=== PATIENT | male | born 1955 | race Caucasian/White ===

== ENCOUNTER → 2017-10-17 16:21 | Outpatient (CLI) | payer OTHER, SELFPAY ==
[2017-10-17 17:55] LABS: Absolute Lymphocyte Count 1.19 X10^3/ul (0.83-4.51); Absolute Neutrophil Count 2.2 X10^3/uL (2.0-7.7); Basophil# 0.04 X10^3/uL; Eosinophil# 0.09 X10^3/uL; Eosinophils% 2.3 % (0-5); Hematocrit 43.8 % (40-54); Hemoglobin 14.2 g/dl (13.0-16.5); Lymphocyte # 1.19 X10^3/ul (4.0); Lymphocyte % 30.1 % (19-41); Mean Corp Hgb Conc 32.4 g/gl (32-36); Mean Corpuscular Hgb 32.6 pg (27.0-32.0); Mean Corpuscular Volume 100.5 fL (80-94); Mean Platelet Vol. 8.4 fl (6.2-12.0); Monocyte# 0.42 X10^3/uL; Monocyte% 10.6 % (0-10); Neutrophil # 2.21 X10^3/uL (2.7-7.7); Platelet Count 200 K/mm3 (150-450); RBC Distribution Width CV 13.2 % (11.6-14.6); RBC Distribution Width SD 48.2 fl (35.1-43.9); Red Blood Count 4.36 M/mm3 (4.6-6.2)
[2017-10-17 17:57] LABS: POSITIVE COUNT NO; POSITIVE DIFFERENTIAL NO; POSITIVE MORPHOLOGY NO
[2017-10-17 18:57] LABS: Anion Gap 8 (5-15); BUN 13 mg/dL (7-18); Calcium,Total 8.6 mg/dL (8.5-10.1); Chloride 106 mmol/L (98-107); Creatinine, Serum 0.81 mg/dL (0.70-1.30); EST Glomerular Filtration Rate 102 mL/min (>60); Est Glom Filt Rate - Afr Amer 123 mL/min (>60); Glucose 90 mg/dL (74-106); Potassium 3.9 mmol/L (3.5-5.1); Sodium Level 142 mmol/L (136-145)
[2017-10-18 20:08] LABS: Uric Acid 4.5 mg/dL (3.5-7.2)
== END ==
PROVIDERS: Family Provider Family Medicine; PCP Family Medicine; Visit Provider Podiatrist
DX: M10.9 Gout, unspecified (principal)
CPT/HCPCS: 36415; 80048; 84550; 85025

== ENCOUNTER → 2017-12-21 11:09 | Outpatient (CLI) | payer OTHER, SELFPAY ==
--- NOTE | 2017-12-21 11:14 | RAD_ITS ---
STUDY: X-RAY CHEST REASON FOR EXAM: Male, 62 years old. Acute bronchitis. Cough. TECHNIQUE: PA and lateral views of the chest. COMPARISON: None. FINDINGS: The lungs are clear and expanded. Scattered calcified granulomas. There is no demonstrated pleural abnormality. Normal size heart. Normal mediastinum and hong. Normal visualized pulmonary arteries. Normal visualized aortic arch and descending thoracic aorta. There are diffuse degenerative changes of the visualized thoracic spine. Mild dextroscoliosis. Normal visualized ribs, clavicles, and shoulders. There is no demonstrated abnormality of the visualized soft tissue structures of the upper abdomen. RAD/Chest PA and Lateral IMPRESSION: No acute abnormality is seen. Electronically Signed: Jp Keller MD at 11:33 EDT Tel [phone], Service support ,
== END ==
PROVIDERS: Family Provider Family Medicine; PCP Family Medicine; Visit Provider Family Medicine
DX: J20.9 Acute bronchitis, unspecified (principal)
CPT/HCPCS: 71046

== ENCOUNTER → 2018-01-01 09:00 | Outpatient (CLI) | payer OTHER, SELFPAY ==
[2018-01-01 12:54] LABS: PSA,Total - Annual Screen 2.49 ng/mL (0.00-4.00); Thyroid Stim Hormone (TSH) 5.81 uIU/mL (0.358-3.74)
== END ==
PROVIDERS: Family Provider Family Medicine; PCP Family Medicine; Visit Provider Family Medicine
DX: E89.0 Postprocedural hypothyroidism (principal); Z12.5 Encounter for screening for malignant neoplasm of prostate
CPT/HCPCS: 36415; 84153; 84443; G0103

== ENCOUNTER → 2018-07-22 09:40 | Outpatient (CLI) | payer OTHER, SELFPAY ==
[2018-07-22 12:32] LABS: Absolute Lymphocyte Count 0.88 X10^3/ul (0.83-4.51); Absolute Neutrophil Count 2.7 X10^3/uL (2.0-7.7); Basophil# 0.03 X10^3/uL; Basophil% 0.8 % (0-1); Eosinophil# 0.04 X10^3/uL; Hematocrit 44.4 % (40-54); Hemoglobin 14.2 g/dl (13.0-16.5); Lymphocyte # 0.88 X10^3/ul (4.0); Mean Corpuscular Hgb 31.8 pg (27.0-32.0); Mean Corpuscular Volume 99.6 fL (80-94); Mean Platelet Vol. 8.7 fl (6.2-12.0); Monocyte# 0.33 X10^3/uL; Monocyte% 8.3 % (0-10); Neutrophil # 2.72 X10^3/uL (2.7-7.7); Neutrophil % 67.9 % (47-70); Platelet Count 220 K/mm3 (150-450); RBC Distribution Width CV 13.4 % (11.6-14.6); RBC Distribution Width SD 48.7 fl (35.1-43.9); Red Blood Count 4.46 M/mm3 (4.6-6.2)
[2018-07-22 12:35] LABS: POSITIVE COUNT NO; POSITIVE DIFFERENTIAL NO; POSITIVE MORPHOLOGY NO
[2018-07-22 13:08] LABS: Anion Gap 11 (5-15); BUN 12 mg/dL (7-18); BUN/Creat Ratio 14.2 RATIO (10-20); Calcium,Total 8.9 mg/dL (8.5-10.1); Chloride 110 mmol/L (98-107); Creatinine, Serum 0.84 mg/dL (0.70-1.30); EST Glomerular Filtration Rate 97 mL/min (>60); Est Glom Filt Rate - Afr Amer 118 mL/min (>60); Glucose 84 mg/dL (74-106); Potassium 4.1 mmol/L (3.5-5.1); Sodium Level 146 mmol/L (136-145); Thyroid Stim Hormone (TSH) 1.14 uIU/mL (0.358-3.74)
--- OUTSIDE RECORDS SUMMARY | 2018-10-23 22:01 | XMS RPT_ITS ---
:1955 Author Organization [facility] Care Team Providers Name Role Phone Ian Rodríguez Attending Unavailable Ian Rodríguez Primary Care Unavailable Ayaan Velarde Attending Unavailable Ian Rodríguez Primary Care Unavailable Ian Rodríguez Attending Unavailable Ian Rodríguez Referring Unavailable Ian Rodríguez Primary Care Unavailable Ian Rodríguez Attending Unavailable Ian Rodríguez Primary Care Unavailable PROBLEMS PROBLEMS DATE TYPE CONDITION / CODE ATTENDING STATUS SOURCE 12/21/2017 Unknown J20.9 - Acute Ian Rodríguez Active [place] bronchitis, Community unspecified / Hospital J20.9(ICD-10) Repository PROCEDURES PROCEDURES No Procedure Records FoundRESULTS RESULTS CBC W/DIFF, AUTOMATED Collected: 07/22/2018 Status: F Source: RADHA 9:42 AM [facility] REPOSITORY Order Comment: Order Date: 01/25/18 Order Info: 0184-1 - CBCD TYPE CODE TESTS RESULT OUT OF RANGE REFERENCE UNITS LAB L100.1000 4.4-11.0 K/mm3 Low WBC 4.0 LAB L100.1200 4.6-6.2 M/mm3 Low RBC 4.46 LAB L100.1300 13.0-16.5 g/dl Normal HGB 14.2 LAB L100.1400 40-54 % Normal HCT 44.4 LAB L100.1500 80-94 fL High MCV 99.6 LAB L100.1600 27.0-32.0 pg Normal MCH 31.8 LAB L100.1700 32-36 g/gl Normal MCHC 32.0 LAB L100.1810 11.6-14.6 % Normal RDW CV 13.4 LAB L100.1820 35.1-43.9 fl High RDW SD 48.7 LAB L100.1900 150-450 K/mm3 Normal PLT 220 LAB L100.2000 6.2-12.0 fl Normal MPV 8.7 LAB L100.2100 47-70 % Normal NEUT% 67.9 LAB L100.2200 19-41 % Normal LY% 22.0 LAB L100.2300 0-10 % Normal MONO% 8.3 LAB L100.2400 0-5 % Normal EO% 1.0 LAB L100.2500 0-1 % Normal BASO% 0.8 LAB L100.2550 0.0-0.9 % Normal IM GRAN % 0.000 Result Comment: IG% - Immature Granulocytes (promyelocytes, myelocytes and metamyelocytes) > 1% indicates that a LEFT SHIFT is Present. LAB L100.2620 2.0-7.7 X10 3/uL Normal Absolute Neut 2.7 LAB L100.2720 0.83-4.51 X10 3/ul Normal Absolute Lymph 0.88 Performed By: #### L100.0100, L500.2500, L501.9520 #### [facility] [address] [place], [place], [id number] BASIC METABOLIC Collected: 07/22/2018 Status: F Source: RADHA [place] (ARLET) 9:42 AM [facility] REPOSITORY Order Comment: Order Date: 01/25/18 Order Info: 0667-1 - BMP Order Info: 3016-3 - TSH TYPE CODE TESTS RESULT OUT OF RANGE REFERENCE UNITS LAB L501.0100 74-106 mg/dL Normal GLU 84 Result Comment: Please note revised GLUCOSE reference range effective 2017. LAB L501.1000 7-18 mg/dL Normal BUN 12 LAB L501.1100 0.70-1.30 mg/dL Normal CREAT,SERUM 0.84 Result Comment: The validity of the calculated GFR AND GFRAA in patients over 70 years has not been determined. Clinical correlation is essential. LAB L501.1110 >60 mL/min Normal EST GFR 97 Result Comment: Non- GFR Calc LAB L501.1115 >60 mL/min Normal EST GFR - AA 118 Result Comment: GFR Calc LAB L501.1300 10-20 RATIO Normal BUN/CRE 14.2 LAB L501.2200 8.5-10.1 mg/dL CA Normal 8.9 LAB L501.5300 136-145 mmol/L High NA 146 LAB L501.5600 3.5-5.1 mmol/L K Normal 4.1 LAB L501.5900 98-107 mmol/L High CL 110 LAB L501.6100 21.0-32.0 mmol/L Normal CO2 25.0 LAB L501.6200 5-15 Normal GAP 11 Performed By: #### L100.0100, L500.2500, L501.9520 #### [facility] [address] [facility] [place], [place], [address] THYROID STIM HORMONE Collected: 07/22/2018 Status: F Source: RADHA (TSH) 9:42 AM [facility] REPOSITORY Order Comment: Order Date: 01/25/18 Order Info: 0667-1 - BMP Order Info: 3016-3 - TSH TYPE CODE TESTS RESULT OUT OF RANGE REFERENCE UNITS LAB L501.9520 0.358-3.74 uIU/mL Normal TSH 1.14 Performed By: #### L100.0100, L500.2500, L501.9520 #### [facility] [address] [place], [place], [address] THYROID STIM HORMONE Collected: 01/01/2018 Status: F Source: RADHA (TSH) 9:02 AM [facility] REPOSITORY Order Comment: Order Date: 07/20/17 Order Info: 3016-3 - TSH Order Info: 2857-1 - PSA TYPE CODE TESTS RESULT OUT OF RANGE REFERENCE UNITS LAB L501.9520 0.358-3.74 uIU/mL High TSH 5.81 Performed By: #### L501.9520, L501.9910 #### [facility] [address] [place], [address] PSA,TOTAL - ANNUAL Collected: 01/01/2018 Status: F Source: RADHA SCREEN 9:02 AM [facility] REPOSITORY Order Comment: Order Date: 07/20/17 Order Info: 3016-3 - TSH Order Info: 2857-1 - PSA TYPE CODE TESTS RESULT OUT OF RANGE REFERENCE UNITS LAB L501.9910 0.00-4.00 ng/mL Normal PSA,TOT 2.49 SCREEN Result Comment: This test was performed using the TPSA assay method for the [employer] chemistry system. Values obtained with different assay methods cannot be used interchangably. When changing PSA assays in the course of monitoring a patient, additional sequential testing should be carried out to confirm baseline values. Performed By: #### L501.9520, L501.9910 #### [facility] [address] [place], [address] CHEST PA AND LATERAL Observed: 12/21/2017 Status: F Source: RADHA 11:14 AM [facility] REPOSITORY [facility] [address] [place] [address] Chest PA and Lateral MR#: [id number] Acct: [id number] Name: TERESAWILLIS Rep #: [id number] : 1955 62 From: Jp Keller MD PCP: Ian Rodríguez MD Status: REG CLI Study: Chest PA and Lateral Date of Exam: 12/21/17 Exam# [id number] Ordering Dr: Ian Rodríguez MD STUDY: X-RAY CHEST REASON FOR EXAM: Male, 62 years old. Acute bronchitis. Cough. TECHNIQUE: PA and lateral views of the chest. COMPARISON: None. FINDINGS: The lungs are clear and expanded. Scattered calcified granulomas. There is no demonstrated pleural abnormality. Normal size heart. Normal mediastinum and hong. Normal visualized pulmonary arteries. Normal visualized aortic arch and descending thoracic aorta. There are diffuse degenerative changes of the visualized thoracic spine. Mild dextroscoliosis. Normal visualized ribs, clavicles, and shoulders. There is no demonstrated abnormality of the visualized soft tissue structures of the upper abdomen. RAD/Chest PA and Lateral IMPRESSION: No acute abnormality is seen. Electronically Signed: Jp Keller MD at 11:33 EDT Tel [phone], Service support , CC: Ian Rodríguez MD [employer] Inspectors: Signed CBC W/DIFF, AUTOMATED Collected: 10/17/2017 Status: F Source: [place] 4:26 PM [facility] REPOSITORY TYPE CODE TESTS RESULT OUT OF RANGE REFERENCE UNITS LAB L100.1000 4.4-11.0 K/mm3 Low WBC 4.0 LAB L100.1200 4.6-6.2 M/mm3 Low RBC 4.36 LAB L100.1300 13.0-16.5 g/dl Normal HGB 14.2 LAB L100.1400 40-54 % Normal HCT 43.8 LAB L100.1500 80-94 fL High MCV 100.5 LAB L100.1600 27.0-32.0 pg High MCH 32.6 LAB L100.1700 32-36 g/gl Normal MCHC 32.4 LAB L100.1810 11.6-14.6 % Normal RDW CV 13.2 LAB L100.1820 35.1-43.9 fl High RDW SD 48.2 LAB L100.1900 150-450 K/mm3 Normal PLT 200 LAB L100.2000 6.2-12.0 fl Normal MPV 8.4 LAB L100.2100 47-70 % Normal NEUT% 56.0 LAB L100.2200 19-41 % Normal LY% 30.1 LAB L100.2300 0-10 % High MONO% 10.6 LAB L100.2400 0-5 % Normal EO% 2.3 LAB L100.2500 0-1 % Normal BASO% 1.0 LAB L100.2550 0.0-0.9 % Normal IM GRAN % 0.000 Result Comment: IG% - Immature Granulocytes (promyelocytes, myelocytes and metamyelocytes) > 1% indicates that a LEFT SHIFT is Present. LAB L100.2620 2.0-7.7 X10 3/uL Normal Absolute Neut 2.2 LAB L100.2720 0.83-4.51 X10 3/ul Normal Absolute Lymph 1.19 Performed By: #### L100.0100 #### [facility] [address] [facility] [place], [place], [id number] BASIC METABOLIC Collected: 10/17/2017 Status: F Source: [place] PROFILE (BMP) 4:26 PM [facility] REPOSITORY TYPE CODE TESTS RESULT OUT OF RANGE REFERENCE UNITS LAB L501.0100 74-106 mg/dL Normal GLU 90 Result Comment: Please note revised GLUCOSE reference range effective 2017. LAB L501.1000 7-18 mg/dL Normal BUN 13 LAB L501.1100 0.70-1.30 mg/dL Normal CREAT,SERUM 0.81 Result Comment: The validity of the calculated GFR AND GFRAA in patients over 70 years has not been determined. Clinical correlation is essential. LAB L501.1110 >60 mL/min Normal EST GFR 102 Result Comment: Non- GFR Calc LAB L501.1115 >60 mL/min Normal EST GFR - AA 123 Result Comment: GFR Calc LAB L501.1300 10-20 RATIO Normal BUN/CRE 16.0 LAB L501.2200 8.5-10.1 mg/dL CA Normal 8.6 LAB L501.5300 136-145 mmol/L NA Normal 142 LAB L501.5600 3.5-5.1 mmol/L K Normal 3.9 LAB L501.5900 98-107 mmol/L CL Normal 106 LAB L501.6100 21.0-32.0 mmol/L Normal CO2 28.0 LAB L501.6200 5-15 Normal GAP 8 Performed By: #### L500.2500, L501.1400 #### [facility] [address] [place], [address] URIC ACID Collected: 10/17/2017 Status: F Source: [place] 4:26 PM [facility] REPOSITORY TYPE CODE TESTS RESULT OUT OF RANGE REFERENCE UNITS LAB L501.1400 3.5-7.2 mg/dL Normal URIC 4.5 Result Comment: The drugs N-Acetylcysteine and Metamizole may falsely depress this assay. Performed By: #### L500.2500, L501.1400 #### [facility] [address] [place], [address] ALLERGIES ALLERGIES No Allergies Records FoundENCOUNTERS ENCOUNTERS ADMIT/DISCHARGE ACCOUNT ADMITTING ENCOUNTER LOCATION SOURCE NUMBER CLASS 07/22/2018 [id number] [facility] ing:MFPLAB Repository 01/01/2018 [id number] [facility] ing:MFPLAB Repository 12/21/2017 [id number] [facility] ing:MTRAD Repository 10/17/[id number] ing:MTLAB Repository PAYERS PAYERS ENCOUNTER GUARANTOR PAYER SUBSCRIBER SOURCE 07/22/2018 Kristin Aranda Primary Kristin Bess [id number] Insurance:MEDICAL HellerDOB: [facility] [id number] Number: Repository [id number]: [phone] [id number] [phone] () Date:1164-62-31PM [address] [address]NN: 07/22/2018 Secondary NOT GIVENUNK [place] Insurance:SELF PAY [facility] Number: Effective Repository Date:2018-07-22 01/01/2018 Kristin Aranda Primary Kristin Bess [id number] Insurance:MEDICAL HellerDOB: [facility] [id number] Number: Repository [id number]: [phone] [id number] [phone] () Date:[id number] [address]IV: 01/01/2018 Secondary NOT GIVENUNK [place] Insurance:SELF PAY [facility] Number: Effective Repository Date:2018-01-01 12/21/2017 [facility] Primary Kristin Aranda Radha [id number] Insurance:MEDICAL HellerDOB: [facility] [id number] Number: Repository [id number]: 330 [id number] [phone] () Date:0163-66-82QT [address] [address]QJ: 12/21/2017 Secondary NOT GIVENUNK [place] Insurance:SELF PAY [facility] Number: Effective Repository Date:2017-12-21 10/17/2017 [facility] Primary Kristin Aranda Radha [id number] Insurance:MEDICAL HellerDOB: [facility] [id number] Number: Repository [id number]: [phone] [id number] [phone] () Date:4825-03-01QD [address] [place] [address]JL: 10/17/2017 Secondary NOT GIVENUNK [place] Insurance:SELF PAY [facility] Number: Effective Repository Date:2017-10-17
== END ==
PROVIDERS: Family Provider Family Medicine; PCP Family Medicine; Visit Provider Family Medicine
DX: E89.0 Postprocedural hypothyroidism (principal); R53.81 Other malaise
CPT/HCPCS: 36415; 80048; 84443; 85025

== ENCOUNTER 2018-11-13 08:00 | Outpatient (RCR) | payer OTHER, SELFPAY ==
--- NOTE | 2018-11-05 07:47 | HP.PTEVAL ---
Patient's Visit Information KRISTIN MOORE is a 63 year old M referred to Physical Therapy by Demetri Bro MD with a diagnosis of Left Knee OA. Date of Evaluation: 11/05/18 Physical Therapist: Hazel Adams DPT - Visit Plan Frequency: 1x/Week Duration: 4 Weeks Plan: Single visit for gym HEP prior to TKR - Subjective Findings: Dr. Bro wants him to do PT before his LEFT knee replacement at the end of January. Bone and bone in the knee. Fully functional just painful- cant squat. Work: [employer]- 35 hours a week. Wears [employer] shoes and wears a brace occasioanlly. Most of the pain is along the lateral aspect and knee cap. Worst: 8/10 Agg: everything Eases: Ibuprofen Best:2/10 Achy pains in the knee. Sleep: not disturbed but doesn't sleep well anyways. X-rays recently. Does not have good balance- has been going on for awhile due to fracture in his foot in [id number]- still has pain in the foot. Is not currently working out- tired after work. But does have a family membership. PMHx: thyroid, Meds: levothyroxin, Citalopram - Objective Posture: FH, RS, Increased kyphosis. Observation: sitting with left leg stretched straight out in front of him. Gait: slightly antalgic- decreased stance on the left LE- poor heel/toe pattern. SLS: unable to remove hands from wall but does WS fully. HR/TR: able with UE A. Palpation: tender along lateral joint line and superior patella. ROM: 0-110 degrees with pain at end ranges of both flexion and extn. Strength: Ankle: 4+/5, Knee: Extn: 4+/5 Flexion: 4-/5 Hip: 4-/5 throughout pain with IR/ER testing Core: fair minus. Flex: HS: severe Gatroc: mod - Goals Goal 1:: Patient will be I with HEP and progression Goal Time Frame: 4-6 Weeks - Rehabilitation Potential Physical Therapy Diagnosis: Patient presents with hypomobility- he has decreased ROM, strength and muscular endurance leading to abnormal gait and increased pain with ADL's. Rehabilitation Potential: Fair - Anticipated Interventions Patient/Client Instruction: Educate patient on: Benefits of Fitness Program Therapeutic Exercise to Include: Strength training, Power training, Endurance training, Balance training, Agility training, Body mechanics, Postural training, Flexibilty training, Gait and locomotor training, Dynamic Lumbar Stabilization, Scapular Strength/Stabilization For the Purpose of:: To improve muscle performance and motor function Thank you for the opportunity to evaluate your patient. For Medicare and Medicare HMO plans, please review the plan of care and approve it. It will need to be FAXED BACK to us at [phone] for Medicare purposes. For Medicare only, by signing this I certify the plan of care. Please let me know if there are questions or concerns regarding this plan of care. Physician Signature: Date:
--- NOTE | 2018-11-13 08:59 | HP.PTDCSUM_ITS ---
HP - PT D/C Summary It has been my pleasure to treat KRISTIN MOORE under orders from Demetri Bro MD, for the diagnosis of Left Knee OA for a total of 2 visit(s). Discharge Date: Please see the following information for a summary of their discharge status. - Subjective Subjective: Patient reports that he is ready for the knee replacement - Overall Improvement % Improvement: 50 - Objective Objective/Function: Patient was able to complete without incidence. 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 - Goals Goal 1:: Patient will be I with HEP and progression - Plan Plan: Discharge to I HEP - D/C Information If there are questions or concerns regarding this patient's physical therapy, please feel free to call me at [phone]. Thank you for the referral of this patient. Sincerely, HEIDI ColmenaresT
== END 2018-11-13 10:12 | disposition home or self-care (01) ==
LOC: PT 08:00
PROVIDERS: Family Provider Family Medicine; PCP Family Medicine; Referring Provider Specialist; Visit Provider Specialist
DX: M17.12 Unilateral primary osteoarthritis, left knee (principal)
CPT/HCPCS: 97110; 97161

== ENCOUNTER 2019-03-01 21:41 | Inpatient (IN) | payer OTHER, SELFPAY ==
[2019-03-01 21:43] VITALS: BP 117/61; PULSE 87; RESP 15; TEMP 36.6; O2SAT 89; BMI 31.8
--- NOTE | 2019-03-01 21:57 | EKG12_ITS ---
Test Reason : CP Blood Pressure : / mmHG Vent. Rate : 075 BPM Atrial Rate : 075 BPM P-R Int : 168 ms QRS Dur : 098 ms QT Int : 396 ms P-R-T Axes : 027 -44 024 degrees QTc Int : 442 ms Normal sinus rhythm Left axis deviation Minimal voltage criteria for LVH, may be normal variant Abnormal ECG Confirmed by MARIBEL CERVANTES, WAGNER ([id number]), editorial specialist BENEDICTO ROJAS ([id number]) on 03/03/2019 1:59:25 PM Referred By: Eric Cross Confirmed By:CHENCHO LÓPEZ MD
--- NOTE | 2019-03-01 21:59 | CT_ITS ---
HISTORY:SOB WITH DEEP INSPIRATION, ABD PAIN LEFT SIDE AND CHEST DISCOMFORT, KNEE SX IN February, TECHNIQUE:CTA Chest WO/W Contrast A CT of the chest was performed following the administration of 175MLml Isovue 370 Thin axial reconstructed images were performed through the pulmonary vasculature as per the routine pulmonary embolus protocol.MIP and mutiplanar reconstructions A dose optimization technique was used during the scan # of images including paperwork:2575 Comparison: none FINDINGS: Study is mildly limited for evaluation of pulmonary embolism due to the timing of the bolus. No aneurysm or dissection. There is calcific plaque in the aorta. Pulmary arteries: No large pulmonary emboli are noted. Because of the timing of the bolus and cannot exclude small subsegmental emboli. The heart is unremarkable. No pericardial effusion. No pleural effusion. No axillary or mediastinal lymphadenopathy is identified. The lungs dependent atelectasis in the lung bases. Pneumpothorax: none The trachea and central airways appear patent . Limited views of the upper abdomen there is free fluid seen within the posterior left upper quadrant of the abdomen. There may be a small amount of fluid within the right upper quadrant also. The etiology is uncertain. I would recommend CT of the abdomen and pelvis with contrast for further evaluation if clinically indicated Levoscoliosis of the thoracic spine no acute osseous abnormality. CT/CTA Chest W/WO Contrast IMPRESSION: No aneurysm or dissection or pulmonary embolism. Because of the timing of the bolus I cannot exclude small subsegmental emboli. There is free fluid seen within the left upper quadrant and probably a small amount of free fluid in the right upper quadrant. Maybe secondary to ascites however would consider CT of the abdomen post contrast for further evaluation if clinically Individualized dose optimization techniques were used for this CT. at 2323 Reported and signed by: Rachel Syed DO Electronically Signed: Rachel Syed DO at 23:22 EDT Tel , Service support ,
[2019-03-01] MEDS: Morphine 4 MG/ML Syringe IV ×2 (22:01→23:21)
[2019-03-01] MEDS: 0.9% Normal Saline 1,000 ML 1000 ML IV (22:01)
[2019-03-01] MEDS: Ondansetron 4 MG/2 ML Vial IV ×2 (22:01→23:21)
[2019-03-01 22:04] LABS: Absolute Lymphocyte Count 1.94 X10^3/uL (0.83-4.51); Absolute Neutrophil Count 5.2 X10^3/uL (2.0-7.7); Basophil# 0.06 X10^3/uL; Basophil% 0.8 % (0-1); Eosinophil# 0.09 X10^3/uL; Eosinophils% 1.1 % (0-5); Hematocrit 45.2 % (40-54); Hemoglobin 14.9 g/dL (13.0-16.5); Lymphocyte # 1.94 X10^3/ul (4.0); Lymphocyte % 24.7 % (19-41); Mean Corpuscular Volume 100.2 fL (80-94); Mean Platelet Vol. 8.2 fl (6.2-12.0); Monocyte# 0.58 X10^3/uL; Monocyte% 7.4 % (0-10); NRBC Flagged by Analyzer 0 % (0-5); Neutrophil # 5.17 X10^3/uL (2.7-7.7); Neutrophil % 65.6 % (47-70); Platelet Count 261 K/mm3 (150-450); RBC Distribution Width CV 12.5 % (11.6-14.6); RBC Distribution Width SD 46.7 fl (35.1-43.9); Red Blood Count 4.51 M/mm3 (4.6-6.2); White Blood Count 7.9 K/mm3 (4.4-11.0)
[2019-03-01 22:20] LABS: AST(SGOT) 16 U/L (15-37); Alanine Aminotransfer ALT/SGPT 17 U/L (16-61); Albumin, Serum 3.8 g/dL (3.2-5.0); Alkaline Phosphatase 82 U/L (45-117); Anion Gap 8 (5-15); BUN 16 mg/dL (7-18); Calcium,Total 8.8 mg/dL (8.5-10.1); Chloride 106 mmol/L (98-107); Creatinine, Serum 1.07 mg/dL (0.70-1.30); EST Glomerular Filtration Rate 74 mL/min (>60); Est Glom Filt Rate - Afr Amer 90 mL/min (>60); Estimated Creatinine Clearance 85.63 ml/min; Globulin 3.7 g/dL (2.2-4.2); Glucose 131 mg/dL (74-106); Potassium 3.7 mmol/L (3.5-5.1); Protein, Total 7.5 g/dL (6.4-8.2); Sodium Level 141 mmol/L (136-145)
[2019-03-01 22:43] VITALS: BP 130/75; PULSE 90; RESP 24; O2SAT 97
[2019-03-01 23:00] VITALS: BP 129/80; PULSE 89; RESP 18; O2SAT 95
--- NOTE | 2019-03-01 23:34 | CT_ITS ---
We are attempting to reach an attending provider to discuss findings. An addendum with communication details will be sent when the communication is complete. HISTORY: Free fluid found on left side, left paracolic gutter on CTA chest that went down into the upper abdomen. No contrast injected for this study due to the recent contrast bolus for the CTA of the chest TECHNIQUE: Helically acquired images were obtained of the abdomen and pelvis without oral or IV contrast. A radiation dose optimization technique was used for this scan. COMPARISON: CT scan of the chest performed about 1 hour earlier FINDINGS: # of images incl. paperwork: 544 LUNG BASES: Minimal dependent basilar atelectasis is slightly greater than the previous study. 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 Liver, and adrenal glands are normal. There is some free fluid about the spleen. Margins of the spleen are not well defined in differentiated from the fluid. There is some induration around the pancreas. Around the pancreatic tail there is a 2.1 cm cystic lesion. Margins of the tail of the pancreas are also indistinct. Both kidneys excrete contrast into nondilated systems. The contrast is the residual from the CTA chest. Bilateral parapelvic cysts are present.. The aorta is mildly tortuous with mild amounts of atherosclerotic plaque. There is no intra-or extrahepatic biliary ductal dilatation. CT pelvis: Left paracolic gutter ascites. No pelvic ascites Is present. The prostate gland is slightly enlarged and indents into the posterior inferior aspect of the urinary bladder. The appendix styled is demonstrated on series 601 image 61, the coronal's. I cannot follow it more peripherally. This could be that it is very small, or has been resected. I favor that it is very small and normal.. The bladder is distended with excreted contrast. There is some bowel wall thickening within the splenic flexure of colon where it is adjacent to the indurated tissue adjacent to the spleen CT/Abdomen/Pelvis without Cont IMPRESSION: Free intraperitoneal fluid adjacent to the spleen with induration of the fat. This fluid minimally extends into the left paracolic gutter, and surrounds the tail of the pancreas. This likely represents sequelae of acute pancreatitis involving the tail the pancreas. There is, however, a 2.1 cm cystic lesion posterior to the tail of the pancreas. This is of unknown etiology. This could be fluid related to acute pancreatitis, pseudocyst, or a pancreatic cystic neoplasm. An additional possibility exists, that there has been splenic rupture, and this tissue and fluid around the spleen is blood related to that rupture. I can find no evidence for trauma superficial to the spleen Individualized dose optimization techniques were used for this CT. at 0022 Reported and signed by: Brian Cespedes MD Electronically Signed: Brian Cespedes MD at 0:21 EDT Tel , Service support ,
[2019-03-02] VITALS (13 sets, daily range): BP systolic 102–154; BP diastolic 68–91; PULSE 88–104; RESP 18–24; TEMP 36.3–37.4; O2SAT 91–96; BMI 32.2; BMI 32.3
[2019-03-02 00:22] LABS: International Normalized Ratio 1.1
[2019-03-02 00:23] LABS: Partial Thromboplast Time 27.2 Seconds (24.1-36.2)
[2019-03-02 01:00] LABS: Lipase 24648 U/L (73-393)
--- NOTE | 2019-03-02 01:07 | ED.DCSUM_ITS ---
- ER Visit Summary Date of Service: 03/02/19 Chief Complaint: Chest and abdominal pain History of Present Illness: The patient is a [address] Ian Rodríguez. He had a left total knee replacement by Dr. Bro on February 04. He reports that today while at rest he had the abrupt onset of lower left chest pain and upper abdominal pain. He describes it as a sharp pain that is 10 out of 10 in severity at worst an 8 out of 10 currently. It is worsened by breathing. Is relieved by nothing. He reports his been nauseated, but has not vomited. He has been diaphoretic. He denies any shortness of breath. He denies any trauma. No fall, MVA, or change in activity. In fact he reports he has been quite inactive since the knee replacement. Physical Examination: Vitals: Stable. Afebrile. General: Well-nourished and well-developed. Head: Normocephalic atraumatic. Neck: Supple, no lymphadenopathy. No JVD. Nontender. Cardiovascular: Regular rate and rhythm. No murmurs. Respiratory: No respiratory distress. Clear to auscultation bilaterally. Abdominal: Soft, moderate tenderness palpation in the epigastric region and left upper quadrant, nondistended, normal bowel sounds. No guarding, rebound, or peritoneal signs. Back: Nontender. Extremities: Nontender, no edema. Skin: Normal color, no rash. Neurologic: Alert and oriented ?3. Cranial nerves II through XII are intact. Normal strength and sensation. Psych: Normal affect. Test Results: EKG is sinus at [address] changes. There is no significant change in 2010. Troponin is negative. LFTs are normal. Lipase is 24,000. INR is 1.1. PTT is 27.3. Chem-7 shows a glucose of 131. CBC is normal. Clinical Impression(s) from Imaging Studies Chest CTA 03/01/19 21:59 IMPRESSION: No aneurysm or dissection or pulmonary embolism. Because of the timing of the bolus I cannot exclude small subsegmental emboli. There is free fluid seen within the left upper quadrant and probably a small amount of free fluid in the right upper quadrant. Maybe secondary to ascites however would consider CT of the abdomen post contrast for further evaluation if clinically Individualized dose optimization techniques were used for this CT. at 2323 Reported and signed by: Rachel Syed DO Electronically Signed: Rachel Syed DO at 23:22 EDT Tel , Service support , Abdomen/Pelvis CT 03/01/19 23:34 IMPRESSION: Free intraperitoneal fluid adjacent to the spleen with induration of the fat. This fluid minimally extends into the left paracolic gutter, and surrounds the tail of the pancreas. This likely represents sequelae of acute pancreatitis involving the tail the pancreas. There is, however, a 2.1 cm cystic lesion posterior to the tail of the pancreas. This is of unknown etiology. This could be fluid related to acute pancreatitis, pseudocyst, or a pancreatic cystic neoplasm. An additional possibility exists, that there has been splenic rupture, and this tissue and fluid around the spleen is blood related to that rupture. I can find no evidence for trauma superficial to the spleen Individualized dose optimization techniques were used for this CT. at 0022 Reported and signed by: Brian Cespedes MD Electronically Signed: Brian Cespedes MD at 0:21 EDT Tel , Service support , Emergency Department Course and Treatment: She was treated with morphine and Zofran IV. He is resting more comfortably. At this time I do not have an explanation for his pancreatitis. He has had his gallbladder removed. He rarely drinks. Treatment Plan: The patient was discussed with Dr. Cross. He will be admitted to the hospital for further evaluation and treatment. Disposition: Admitted in improved condition. Impression: 1. Pancreatitis. This note was generated with Flavi[employer] software. It may contain incorrect words, spelling, and punctuation that were not noted in review of the chart prior to signing ED Disposition - Plan for ED Patient: Referrals: Ian Rodríguez MD [Primary Care Provider] -
--- NOTE | 2019-03-02 01:22 | HP.PCM_ITS ---
Problem List (1) Depression Status: Acute (2) Hypothyroidism Status: Acute (3) Acute pancreatitis Status: Acute History of Present Illness Date of Admission: 03/02/19 Chief Complaint: Abdominal pain The patient is a 64 year old M with PMH as below who presents with acute onset of abdominal pain earlier today. He states that it came on and remained at the intensity started with, and initially he thought he had gastritis. Morphine has been able to help a little bit but nothing that he was able to do at home helped. In the ER his white count was normal, and afebrile. Initially he had a CT of the chest done because there is some shortness of breath associated with his presentation, to rule out a PE since he had had a knee surgery on February 04. The CTA was negative however did notice some left colic fluid and therefore CT of the abdomen was obtained which demonstrated significant pancreatitis of the tail with probable pseudocyst formation though they could not rule out a splenic rupture cyst. Lipase was 24,000. Past Medical History Allergies No Known Allergies Allergy (Verified 03/01/19 21:47) Home Medications: Ambulatory Orders Medication Instructions Recorded Aspirin [Aspirin, Baby] 81 mg PO BID 03/01/19 Citalopram [Celexa] 10 mg PO DAILY 03/01/19 Levothyroxine Sodium [Synthroid] 200 mcg PO MOTUWETHSA 03/01/19 Levothyroxine [Synthroid] 100 mcg PO DAILY 03/01/19 Meloxicam [Mobic] 7.5 mg PO DAILY 03/01/19 Surgical History: cholecystectomy, total knee arthroplasty Lives: Spouse/ Significant Other Smoking Status: Never smoker Alcohol: None Drugs: None - *Family History Paternal History Items: Heart Disease Sibling History Items: Cancer - colon Review of Systems Constitutional: Denies: Chills, Fever, Weight Change HEENT: Denies: Head Aches, Sinus Congestion, Sinus Drainage Cardiovascular: Denies: Chest Pain, Palpitations Respiratory: Reports: Shortness of Breath. Denies: Cough, Shortness of breath at rest, Sputum production Gastrointestinal: Reports: Abdominal Pain. Denies: Nausea, Vomiting Genitourinary: Denies: Dysuria Musculoskeletal: Denies: Joint Pain, Joint Tenderness Skin: Denies: Rash, Wounds Neurological: Denies: Numbness, Tingling, Focal weakness Psychiatric: Denies: Anxiety, Depression Hematologic/ Lymphatic: Denies: Easy Bruising, Easy Bleeding VTE Information - Inpt Only VTE Present on Admission: No Patient Problems: Active and Suspected Problems Depression (Acute) Hypothyroidism (Acute) Acute pancreatitis (Acute) - Physical Exam General: Alert, Oriented x3, Cooperative, No apparent distress HEENT: Atraumatic, PERRLA, EOMI, Normocephalic Oral: Dry Mucosa Neck: Supple, No JVD Lungs: Clear to auscultation, Normal air movement, No rhonchi, No wheeze, No rales, Diminished Cardiovascular: Regular rate, Regular Rhythm, Normal S1, Normal S2, No murmurs Abdomen: Soft, Non-Distended, No Hepato-splenomegaly, Tender - Significantly tender to the epigastric region Extremities: No edema, Capillary Refill Less than 3 Seconds Skin: No rashes, No breakdown Neurological: Neuro grossly intact, Sensory exam intact to light touch and pain Psych/Mental Status: Normal Affect, Appropriate Vital Signs Temp Pulse Resp BP Pulse Ox 97.9 F 91 22 H 126/86 H 95 03/01/19 21:43 03/02/19 00:00 03/02/19 00:00 03/02/19 00:00 03/02/19 00:00 Oxygen Flow Rate (L/min) 2 Oxygen Delivery Method Room Air Weight: 262 lb Body Mass Index (BMI) 31.8 Laboratory Tests Past 24 Hrs 03/01/19 03/01/19 03/01/19 21:50 21:50 21:50 WBC 7.9 RBC 4.51 L Hgb 14.9 Hct 45.2 MCV 100.2 H MCH 33.0 H MCHC 33.0 RDW Std Deviation 46.7 H RDW Coeff of Sommer 12.5 Plt Count 261 MPV 8.2 Immature Gran % (Auto) 0.400 Neut % (Auto) 65.6 Lymph % (Auto) 24.7 [place] % (Auto) 7.4 Eos % (Auto) 1.1 Baso % (Auto) 0.8 Absolute Neuts (auto) 5.2 Absolute Lymphs (auto) 1.94 Absolute Nucleated RBC 0.00 Nucleated RBC % 0 PT 14.0 INR 1.1 APTT 27.2 Sodium 141 Potassium 3.7 Chloride 106 Carbon Dioxide 27.0 Anion Gap 8 BUN 16 Creatinine 1.07 Estim Creat Clear Calc 85.63 Est GFR (MDRD) Af Amer 90 Est GFR (MDRD) Non-Af 74 BUN/Creatinine Ratio 15.0 Glucose 131 H Calcium 8.8 Total Bilirubin 0.40 AST 16 ALT 17 Alkaline Phosphatase 82 Troponin I < 0.015 Total Protein 7.5 Albumin 3.8 Globulin 3.7 Albumin/Globulin Ratio 1.0 Lipase 03/01/19 21:50 WBC RBC Hgb Hct MCV MCH MCHC RDW Std Deviation RDW Coeff of Sommer Plt Count MPV Immature Gran % (Auto) Neut % (Auto) Lymph % (Auto) [place] % (Auto) Eos % (Auto) Baso % (Auto) Absolute Neuts (auto) Absolute Lymphs (auto) Absolute Nucleated RBC Nucleated RBC % PT INR APTT Sodium Potassium Chloride Carbon Dioxide Anion Gap BUN Creatinine Estim Creat Clear Calc Est GFR (MDRD) Af Amer Est GFR (MDRD) Non-Af BUN/Creatinine Ratio Glucose Calcium Total Bilirubin AST ALT Alkaline Phosphatase Troponin I Total Protein Albumin Globulin Albumin/Globulin Ratio Lipase 84580 H Assessment/Plan All Active Problems Depression (Acute) Hypothyroidism (Acute) Acute pancreatitis (Acute) 1. Acute pancreatitis -Lipase is over 24,000 -We will repeat CBC and CMP in the morning however no need to repeat lipase will evaluate patient based on his pain -N.p.o. until pain is reduced and then can start a low-fat diet -Morphine for pain -IV fluids at 150 cc/h -He has not had any abdominal trauma to indicate that this could be a splenic rupture and therefore I think that this is more than likely pseudocyst formation. However once this episode is resolved would recommend follow-up as an outpatient for resolution of the cyst -No antibiotics indicated at this time 2. Hypothyroidism -Stable -Continue with Synthroid 3. Depression/anxiety -Stable -Continue with Celexa DVT: SCDs Code Visit Inpatient E&M: 88488 Init Hosp L2
[2019-03-02] MEDS: Morphine 4 MG/ML Syringe IV ×3 (02:43→08:30)
[2019-03-02] MEDS: Ondansetron 4 MG/2 ML Vial IV ×2 (03:30→08:43)
[2019-03-02] MEDS: 0.9% Normal Saline 1,000 ML 150 ML IV (03:56)
[2019-03-02] MEDS: Levothyroxine 100 MCG Tablet PO (05:25)
[2019-03-02 06:32] LABS: Absolute Lymphocyte Count 0.23 X10^3/uL (0.83-4.51); Absolute Neutrophil Count 8.5 X10^3/uL (2.0-7.7); Basophil# 0.02 X10^3/uL; Basophil% 0.2 % (0-1); Eosinophil# 0.15 X10^3/uL; Eosinophils% 1.6 % (0-5); Hematocrit 44.4 % (40-54); Hemoglobin 14.2 g/dL (13.0-16.5); Lymphocyte # 0.23 X10^3/ul (4.0); Lymphocyte % 2.4 % (19-41); Mean Corpuscular Hgb 32.3 pg (27.0-32.0); Mean Corpuscular Volume 101.1 fL (80-94); Mean Platelet Vol. 8.4 fl (6.2-12.0); Monocyte# 0.61 X10^3/uL; Monocyte% 6.4 % (0-10); NRBC Flagged by Analyzer 0 % (0-5); Neutrophil # 8.52 X10^3/uL (2.7-7.7); Neutrophil % 89.1 % (47-70); POSITIVE DIFFERENTIAL YES; POSITIVE MORPHOLOGY YES; Platelet Count 242 K/mm3 (150-450); RBC Distribution Width CV 12.7 % (11.6-14.6); RBC Distribution Width SD 47.7 fl (35.1-43.9); Red Blood Count 4.39 M/mm3 (4.6-6.2); White Blood Count 9.6 K/mm3 (4.4-11.0)
[2019-03-02 06:38] LABS: Differential Indicated SCAN CRITERIA MET
[2019-03-02 06:53] LABS: Differential Comment SCANNED
[2019-03-02 06:54] LABS: Macrocytosis 2+
[2019-03-02 06:59] LABS: ALB/GLOB Ratio 1.1 RATIO (0.9-2.4); AST(SGOT) 23 U/L (15-37); Alanine Aminotransfer ALT/SGPT 18 U/L (16-61); Albumin, Serum 3.6 g/dL (3.2-5.0); Alkaline Phosphatase 76 U/L (45-117); Anion Gap 8 (5-15); BUN 15 mg/dL (7-18); BUN/Creat Ratio 17.2 RATIO (10-20); Calcium,Total 8.5 mg/dL (8.5-10.1); Chloride 109 mmol/L (98-107); Creatinine, Serum 0.87 mg/dL (0.70-1.30); EST Glomerular Filtration Rate 93 mL/min (>60); Est Glom Filt Rate - Afr Amer 113 mL/min (>60); Estimated Creatinine Clearance 105.31 ml/min; Globulin 3.4 g/dL (2.2-4.2); Glucose 143 mg/dL (74-106); Potassium 4.6 mmol/L (3.5-5.1); Sodium Level 143 mmol/L (136-145)
[2019-03-02] MEDS: 0.9% Normal Saline 1,000 ML 999 ML IV ×2 (08:35→09:30)
--- NOTE | 2019-03-02 09:47 | PCM.HOSP.N ---
Hospitalist Note Patient was seen and examined today, he is having a great deal of abdominal pain, I have switched him to IV Dilaudid for his pain, I have increased his IV fluids. In overlooking the patient's medical record, I think it is most likely that he may have passed a stone through his common bile duct-he has had a past history of a cholecystectomy but of course this does not preclude a stone from the liver. I explained this to the patient, patient will remain n.p.o. and lipase will be repeated tomorrow.
[2019-03-02] MEDS: HYDROmorphone 1 MG/ML Syringe IV ×5 (10:10→23:42)
[2019-03-02 10:11] LABS: Cholesterol 170 mg/dL (200); High Density Lipoprotein 68 mg/dL; Triglycerides 34 mg/dL; Very Low Density Lipoprotein 7 mg/dL (5-40)
[2019-03-02] MEDS: proMETHazine 25 MG/ML Syringe 6.25 MG IV ×3 (10:30→21:58)
[2019-03-02] MEDS: 0.9% Normal Saline 1,000 ML 200 ML IV ×3 (10:30→18:59)
[2019-03-02] MEDS: 0.9% NaCl Peripheral Flush Adult/Peds IV (23:43)
[2019-03-03] VITALS (11 sets, daily range): BP systolic 122–148; BP diastolic 65–87; PULSE 70–109; RESP 18–20; TEMP 36.9–37.5; O2SAT 93–94
[2019-03-03] MEDS: 0.9% Normal Saline 1,000 ML 200 ML IV (03:00)
[2019-03-03] MEDS: HYDROmorphone 1 MG/ML Syringe IV ×5 (04:28→20:54)
[2019-03-03 05:48] LABS: Absolute Lymphocyte Count 0.37 X10^3/uL (0.83-4.51); Absolute Neutrophil Count 7.4 X10^3/uL (2.0-7.7); Basophil# 0.01 X10^3/uL; Basophil% 0.1 % (0-1); Eosinophil# 0.14 X10^3/uL; Eosinophils% 1.6 % (0-5); Hematocrit 41.3 % (40-54); Hemoglobin 12.9 g/dL (13.0-16.5); Lymphocyte # 0.37 X10^3/ul (4.0); Lymphocyte % 4.3 % (19-41); Mean Corp Hgb Conc 31.2 g/dL (32-36); Mean Corpuscular Hgb 32.3 pg (27.0-32.0); Mean Corpuscular Volume 103.5 fL (80-94); Mean Platelet Vol. 8.6 fl (6.2-12.0); Monocyte# 0.67 X10^3/uL; Monocyte% 7.8 % (0-10); NRBC Flagged by Analyzer 0 % (0-5); Neutrophil # 7.42 X10^3/uL (2.7-7.7); POSITIVE DIFFERENTIAL YES; POSITIVE MORPHOLOGY YES; Platelet Count 179 K/mm3 (150-450); RBC Distribution Width CV 13.2 % (11.6-14.6); RBC Distribution Width SD 50.5 fl (35.1-43.9); Red Blood Count 3.99 M/mm3 (4.6-6.2); White Blood Count 8.6 K/mm3 (4.4-11.0)
[2019-03-03 06:02] LABS: Differential Indicated SCAN CRITERIA MET
[2019-03-03 06:20] LABS: ALB/GLOB Ratio 0.9 RATIO (0.9-2.4); AST(SGOT) 44 U/L (15-37); Alanine Aminotransfer ALT/SGPT 19 U/L (16-61); Albumin, Serum 3.1 g/dL (3.2-5.0); Alkaline Phosphatase 59 U/L (45-117); Anion Gap 7 (5-15); BUN 19 mg/dL (7-18); BUN/Creat Ratio 22.9 RATIO (10-20); Calcium,Total 7.8 mg/dL (8.5-10.1); Chloride 114 mmol/L (98-107); Creatinine, Serum 0.83 mg/dL (0.70-1.30); EST Glomerular Filtration Rate 99 mL/min (>60); Est Glom Filt Rate - Afr Amer 120 mL/min (>60); Estimated Creatinine Clearance 110.39 ml/min; Globulin 3.3 g/dL (2.2-4.2); Glucose 123 mg/dL (74-106); Lipase 6071 U/L (73-393); Potassium 4.4 mmol/L (3.5-5.1); Protein, Total 6.4 g/dL (6.4-8.2); Sodium Level 145 mmol/L (136-145)
[2019-03-03 06:38] LABS: Differential Comment SCANNED; Macrocytosis 2+
--- NOTE | 2019-03-03 08:03 | MRI_ITS ---
STUDY: MR CHOLANGIOPANCREATOGRAPHY (MRCP) REASON FOR EXAM: Male, 64 years old. Abdominal pain 3 days, pancreatitis. TECHNIQUE: Multisequence multiplanar MRI of the abdomen without IV contrast. MRCP with 3-D volume rendered reformatted images. COMPARISON: CT chest, abdomen and pelvis 03/01/2019. FINDINGS: Gallbladder absent. Nondilated intrahepatic biliary tree. Nondilated common bile duct. Normal features of the liver parenchyma. The common bile duct inserts at the major papilla and the main pancreatic duct at the minor papilla consistent with pancreas divisum. There is no pancreatic ductal ectasia. There is no abnormal prominence of the ampulla. There is no convincing evidence of choledocholithiasis. Thin-walled simple appearing cyst of the proximal pancreatic tail measures 2.2 cm. No significant pancreatic atrophy. Inflammatory stranding/edema is present adjacent to the pancreatic tail, greater curvature of the stomach, and bordering the spleen. MRI/MRCP Abdomen without Contrast IMPRESSION: 1. Simple appearing 2.2 cm pancreatic tail cyst. Differential considerations include simple cyst/chronic pseudocyst. Branch ductal IPMN or other cystic neoplasm is not entirely excluded and longer term follow-up is recommended to ensure stability. Initial follow-up CT or MRI pancreas with contrast in 6 months. Demonstration of stability over 2 years. 2. Inflammatory features in the left upper quadrant of the abdomen appear to be centered on the pancreatic tail, favoring acute pancreatitis. No significant change from imaging of 03/01/2019. 3. No evidence of choledocholithiasis. 4. There is evidence of pancreas divisum. Electronically Signed: Samuel Mayer MD at 12:42 EDT Tel , Service support ,
--- NOTE | 2019-03-03 08:06 | PCM.PN.HOSP ---
Patient Problems: Active and Suspected Problems Depression (Acute) Hypothyroidism (Acute) Acute pancreatitis (Acute) Vitals/I&O's: Vital Signs Temp Pulse Resp BP Pulse Ox 98.8 F 101 H 18 143/65 H 94 03/03/19 04:20 03/03/19 04:20 03/03/19 04:20 03/03/19 04:20 03/03/19 07:00 Oxygen Flow Rate (L/min) 2 Oxygen Delivery Method Nasal Cannula Weight: 120.2 kg Body Mass Index (BMI) 32.2 Intake and Output for Last 24 Hours 03/01/19 03/02/19 03/03/19 23:59 23:59 23:59 Intake Total 4896 / 4896 1140 / 1140 Output Total 1450 / 1450 Balance 3446 / 3446 1140 / 1140 Laboratory Results 03/02/19 05:09: Triglycerides 34, Cholesterol 170, LDL Cholesterol 95, VLDL Cholesterol 7, HDL Cholesterol 68 03/03/19 05:02: WBC 8.6, RBC 3.99 L, Hgb 12.9 L, Hct 41.3, MCV 103.5 H, MCH 32.3 H, MCHC 31.2 L, RDW Std Deviation 50.5 H, RDW Coeff of Sommer 13.2, Plt Count 179, MPV 8.6, Immature Gran % (Auto) 0.200, Neut % (Auto) 86.0 H, Lymph % (Auto) 4.3 L, [place] % (Auto) 7.8, Eos % (Auto) 1.6, Baso % (Auto) 0.1, Absolute Neuts (auto) 7.4, Absolute Lymphs (auto) 0.37 L, Absolute Nucleated RBC 0.00, Nucleated RBC % 0, Differential Comment SCANNED, Macrocytosis 2+ 03/03/19 05:02: Sodium 145, Potassium 4.4, Chloride 114 H, Carbon Dioxide 24.0, Anion Gap 7, BUN 19 H, Creatinine 0.83, Estim Creat Clear Calc 110.39, Est GFR (MDRD) Af Amer 120, Est GFR (MDRD) Non-Af 99, BUN/Creatinine Ratio 22.9 H, Glucose 123 H, Calcium 7.8 L, Total Bilirubin 1.10 H, AST 44 H, ALT 19, Alkaline Phosphatase 59, Total Protein 6.4, Albumin 3.1 L, Globulin 3.3, Albumin/Globulin Ratio 0.9, Lipase 6071 H Current Medications Citalopram Hydrobromide (Celexa) 10 mg PO DAILY [facility] Last Admin: 03/02/19 11:02 Dose: Not Given Documented by: Hydromorphone HCl (Dilaudid Inj) 1 - 2 mg IV Q4H PRN PRN PRN Reason: SEVERE PAIN (6-10/10) Last Admin: 03/03/19 04:28 Dose: 1 mg Documented by: Sodium Chloride () 1,000 mls @ 200 mls/hr IV .Q5H [facility] Last Admin: 03/03/19 03:00 Dose: 200 mls/hr Documented by: Levothyroxine Sodium (Synthroid) 100 mcg PO SuFr@0600 [facility] Last Admin: 03/02/19 05:25 Dose: 100 mcg Documented by: Levothyroxine Sodium (Synthroid) 200 mcg PO MoTuWeThSa@0600 [facility] Last Admin: 03/03/19 04:33 Dose: Not Given Documented by: Lorazepam (Ativan) 0.5 mg IV Q6H PRN PRN PRN Reason: ANXIETY/AGITATION Ondansetron HCl (Zofran) 4 mg IV Q8H PRN PRN PRN Reason: NAUSEA/VOMITING Last Admin: 03/02/19 08:43 Dose: 4 mg Documented by: Promethazine HCl (Phenergan) 6.25 mg IV Q4H PRN PRN PRN Reason: NAUSEA/VOMITING Last Admin: 03/02/19 21:58 Dose: 6.25 mg Documented by: Sodium Chloride () 10 - 40 ml IV UD PRN PRN Reason: SALINE FLUSH Last Admin: 03/02/19 23:43 Dose: 10 ml Documented by: Medical Necessity - Tobacco Use Smoking Status: Never smoker Assessment/Plan All Active Problems Depression (Acute) Hypothyroidism (Acute) Acute pancreatitis (Acute)
--- NOTE | 2019-03-03 08:07 | PCM.PN.HOSP ---
Patient Problems: Active and Suspected Problems Depression (Acute) Hypothyroidism (Acute) Acute pancreatitis (Acute) Subjective: Patient is a 64-year-old gentleman who presented with abdominal pain. His assessment was consistent with acute pancreatitis admitted to regular nursing floor for further management. 03/03/2019 patient seen states breathing is more dyspneic than usual. Complains of significant abdominal pain Objective: GENERAL: Appears ill looking HEENT: Atraumatic; moist oral mucosa EYES; Anicteric, Normal Conjunctiva NECK; supple, normal thyroid, no distended JVD. RESPIRATORY: Diminished to auscultation bilaterally, CARDIOVASCULAR: Regular S1 S2, no audible murmurs GI: Epigastric tenderness normoactive bowel sounds, : No Renal angle tenderness; EXTREMITIES: No edema, no clubbing, no cyanosis. MUSCULOSKELETAL: No Joint Tenderness; no muscle waisting NEURO: Awake; no lateralizing signs. SKIN: No Rash PSYCH; Normal affect Vitals/I&O's: Vital Signs Temp Pulse Resp BP Pulse Ox 98.8 F 101 H 18 143/65 H 94 03/03/19 04:20 03/03/19 04:20 03/03/19 04:20 03/03/19 04:20 03/03/19 07:00 Oxygen Flow Rate (L/min) 2 Oxygen Delivery Method Nasal Cannula Weight: 120.2 kg Body Mass Index (BMI) 32.2 Intake and Output for Last 24 Hours 03/01/19 03/02/19 03/03/19 23:59 23:59 23:59 Intake Total 4896 / 4896 1140 / 1140 Output Total 1450 / 1450 Balance 3446 / 3446 1140 / 1140 Laboratory Results 03/02/19 05:09: Triglycerides 34, Cholesterol 170, LDL Cholesterol 95, VLDL Cholesterol 7, HDL Cholesterol 68 03/03/19 05:02: WBC 8.6, RBC 3.99 L, Hgb 12.9 L, Hct 41.3, MCV 103.5 H, MCH 32.3 H, MCHC 31.2 L, RDW Std Deviation 50.5 H, RDW Coeff of Sommer 13.2, Plt Count 179, MPV 8.6, Immature Gran % (Auto) 0.200, Neut % (Auto) 86.0 H, Lymph % (Auto) 4.3 L, [place] % (Auto) 7.8, Eos % (Auto) 1.6, Baso % (Auto) 0.1, Absolute Neuts (auto) 7.4, Absolute Lymphs (auto) 0.37 L, Absolute Nucleated RBC 0.00, Nucleated RBC % 0, Differential Comment SCANNED, Macrocytosis 2+ 03/03/19 05:02: Sodium 145, Potassium 4.4, Chloride 114 H, Carbon Dioxide 24.0, Anion Gap 7, BUN 19 H, Creatinine 0.83, Estim Creat Clear Calc 110.39, Est GFR (MDRD) Af Amer 120, Est GFR (MDRD) Non-Af 99, BUN/Creatinine Ratio 22.9 H, Glucose 123 H, Calcium 7.8 L, Total Bilirubin 1.10 H, AST 44 H, ALT 19, Alkaline Phosphatase 59, Total Protein 6.4, Albumin 3.1 L, Globulin 3.3, Albumin/Globulin Ratio 0.9, Lipase 6071 H Current Medications Citalopram Hydrobromide (Celexa) 10 mg PO DAILY [facility] Last Admin: 03/02/19 11:02 Dose: Not Given Documented by: Hydromorphone HCl (Dilaudid Inj) 1 - 2 mg IV Q4H PRN PRN PRN Reason: SEVERE PAIN (6-1010) Last Admin: 03/03/19 04:28 Dose: 1 mg Documented by: Sodium Chloride () 1,000 mls @ 200 mls/hr IV .Q5H [facility] Last Admin: 03/03/19 03:00 Dose: 200 mls/hr Documented by: Levothyroxine Sodium (Synthroid) 100 mcg PO SuFr@0600 [facility] Last Admin: 03/02/19 05:25 Dose: 100 mcg Documented by: Levothyroxine Sodium (Synthroid) 200 mcg PO MoTuWeThSa@0600 [facility] Last Admin: 03/03/19 04:33 Dose: Not Given Documented by: Lorazepam (Ativan) 0.5 mg IV Q6H PRN PRN PRN Reason: ANXIETY/AGITATION Ondansetron HCl (Zofran) 4 mg IV Q8H PRN PRN PRN Reason: NAUSEA/VOMITING Last Admin: 03/02/19 08:43 Dose: 4 mg Documented by: Promethazine HCl (Phenergan) 6.25 mg IV Q4H PRN PRN PRN Reason: NAUSEA/VOMITING Last Admin: 03/02/19 21:58 Dose: 6.25 mg Documented by: Sodium Chloride () 10 - 40 ml IV UD PRN PRN Reason: SALINE FLUSH Last Admin: 03/02/19 23:43 Dose: 10 ml Documented by: Medical Necessity - Tobacco Use Smoking Status: Never smoker Assessment/Plan All Active Problems Depression (Acute) Hypothyroidism (Acute) Acute pancreatitis (Acute) Patient is a 64-year-old gentleman who presented with abdominal pain. His assessment was consistent with acute pancreatitis admitted to regular nursing floor for further management. 1. Acute pancreatitis: Of undetermined etiology admitted to regular nursing floor where patient is being managed conservatively with bowel rest pain meds and antinausea medication as well as PPI ordered MRCP for subsequent evaluation 2. Acute dyspnea do suspect atelectasis. Patient placed on supplemental oxygen as well as incentive spirometry chest x-ray ordered for further evaluation. 3. Hypothyroidism-patient is on levothyroxine home dose continued 4. Depression with anxiety patient is on Celexa did continue patient was also placed on PRN Ativan 5. DVT prophylaxis patient started on enoxaparin Active Medications Citalopram Hydrobromide (Celexa) 10 mg PO DAILY [facility] Last Admin: 03/02/19 11:02 Dose: Not Given Documented by: Hydromorphone HCl (Dilaudid Inj) 1 - 2 mg IV Q4H PRN PRN PRN Reason: SEVERE PAIN (6-10/10) Last Admin: 03/03/19 04:28 Dose: 1 mg Documented by: Sodium Chloride () 1,000 mls @ 200 mls/hr IV .Q5H [facility] Last Admin: 03/03/19 03:00 Dose: 200 mls/hr Documented by: Levothyroxine Sodium (Synthroid) 100 mcg PO SuFr@0600 [facility] Last Admin: 03/02/19 05:25 Dose: 100 mcg Documented by: Levothyroxine Sodium (Synthroid) 200 mcg PO MoTuWeThSa@0600 [facility] Last Admin: 03/03/19 04:33 Dose: Not Given Documented by: Lorazepam (Ativan) 0.5 mg IV Q6H PRN PRN PRN Reason: ANXIETY/AGITATION Ondansetron HCl (Zofran) 4 mg IV Q8H PRN PRN PRN Reason: NAUSEA/VOMITING Last Admin: 03/02/19 08:43 Dose: 4 mg Documented by: Promethazine HCl (Phenergan) 6.25 mg IV Q4H PRN PRN PRN Reason: NAUSEA/VOMITING Last Admin: 03/02/19 21:58 Dose: 6.25 mg Documented by: Sodium Chloride () 10 - 40 ml IV UD PRN PRN Reason: SALINE FLUSH Last Admin: 03/02/19 23:43 Dose: 10 ml Documented by: Clinical Impression(s) from Imaging Studies Chest CTA 03/01/19 21:59 IMPRESSION: No aneurysm or dissection or pulmonary embolism. Because of the timing of the bolus I cannot exclude small subsegmental emboli. There is free fluid seen within the left upper quadrant and probably a small amount of free fluid in the right upper quadrant. Maybe secondary to ascites however would consider CT of the abdomen post contrast for further evaluation if clinically Individualized dose optimization techniques were used for this CT. at 2323 Reported and signed by: Rachel Syed DO Electronically Signed: Rachel Syed DO at 23:22 EDT Tel , Service support , Abdomen/Pelvis CT 03/01/19 23:34 IMPRESSION: Free intraperitoneal fluid adjacent to the spleen with induration of the fat. This fluid minimally extends into the left paracolic gutter, and surrounds the tail of the pancreas. This likely represents sequelae of acute pancreatitis involving the tail the pancreas. There is, however, a 2.1 cm cystic lesion posterior to the tail of the pancreas. This is of unknown etiology. This could be fluid related to acute pancreatitis, pseudocyst, or a pancreatic cystic neoplasm. An additional possibility exists, that there has been splenic rupture, and this tissue and fluid around the spleen is blood related to that rupture. I can find no evidence for trauma superficial to the spleen Individualized dose optimization techniques were used for this CT. at 0022 Reported and signed by: Brian Cespedes MD Electronically Signed: Brian Cespedes MD at 0:21 EDT Tel , Service support , ADDENDUM: 03/02/19 0113 IMPRESSION: Free intraperitoneal fluid adjacent to the spleen with induration of the fat. This fluid minimally extends into the left paracolic gutter, and surrounds the tail of the pancreas. This likely represents sequelae of acute pancreatitis involving the tail the pancreas. There is, however, a 2.1 cm cystic lesion posterior to the tail of the pancreas. This is of unknown etiology. This could be fluid related to acute pancreatitis, pseudocyst, or a pancreatic cystic neoplasm. An additional possibility exists, that there has been splenic rupture, and this tissue and fluid around the spleen is blood related to that rupture. I can find no evidence for trauma superficial to the spleen Individualized dose optimization techniques were used for this CT. at 0022 Reported and signed by: Brian Cespedes MD N.B. : The above information has been verbally conveyed by Brian Cespedes MD to Marco Ortiz MD, on 03/02/2019 01:06:54 (ET). Electronically Signed: Brian Cespedes MD at 0:21 EDT Tel , Service support , Code Visit Inpatient E&M: 57990 Subs Hosp L3
[2019-03-03] MEDS: 0.9% NaCl Peripheral Flush Adult/Peds IV ×3 (08:32→12:28)
--- NOTE | 2019-03-03 08:36 | EKG12_ITS ---
Test Reason : DYSRHYTMIA Blood Pressure : / mmHG Vent. Rate : 101 BPM Atrial Rate : 101 BPM P-R Int : 166 ms QRS Dur : 096 ms QT Int : 350 ms P-R-T Axes : 031 -31 014 degrees QTc Int : 453 ms Sinus tachycardia with frequent Premature ventricular complexes Left axis deviation Abnormal ECG When compared with ECG of 01-MAR-2019 21:50, MANUAL COMPARISON REQUIRED, DATA IS UNCONFIRMED Confirmed by JACKI SADLER ([id number]), book or script editor BENEDICTO ROJAS ([id number]) on 03/07/2019 8:58:44 AM Referred By: Eric Cross Confirmed By:JACKI SADLER
--- NOTE | 2019-03-03 08:45 | RAD_ITS ---
STUDY: X-RAY CHEST REASON FOR EXAM: Male, 64 years old. Shortness of breath/dyspnea. TECHNIQUE: Single AP portable view of the chest. COMPARISON: Comparison is made with prior study dated December 21, 2017. FINDINGS: Elevation of the right hemidiaphragm. Atelectasis and/or infiltrate at the left lung base with blunting of the left costophrenic angle. Mild degree of vascular congestion. Normal size heart. Normal mediastinum and hong. Normal visualized pulmonary arteries. There is atherosclerotic tortuosity of the aortic arch and descending thoracic aorta. There are diffuse degenerative changes of the visualized thoracic spine. Normal visualized ribs, clavicles, and shoulders. There is no demonstrated abnormality of the visualized soft tissue structures of the upper abdomen. RAD/Chest 1 View (Portable) IMPRESSION: Left lower lobe atelectasis and/or infiltrate with blunting of the left costophrenic angle superimposed on mild degree of vascular congestion. Electronically Signed: Jp Keller, at 13:23 EDT , Service support ,
[2019-03-03] MEDS: Enoxaparin 40 MG/0.4 ML Syringe SC (10:43)
[2019-03-03] MEDS: Citalopram 10 MG Tablet PO (10:44)
[2019-03-03] MEDS: LORazepam 2 MG/ML Syringe 0.5 MG IV (10:45)
--- NOTE | 2019-03-03 10:50 | CASEMGMT ---
RN CM Face to Face with patient for initial transition planning/care coordination assessment. RN CM introduced self and role at [facility]. Patient lying in bed, alert and oriented. Patient willing to participate in assessment and is able to answer all questions appropriately. Care providers, pharmacy, and demographics verified. Patient wishes to discharge home, denies need for home health at this time. Patient states he has no further needs or concerns at this time. CM to follow for discharge planning needs that may arise. PCP: Marcos Specialists: lili Bro Pharmacy: Major Insurance: MMO Prescription Benefit: yes Living Will/HPOA: yes, Kendra Novak HPOA LNOK: Living Arrangements: Patient lives with in 1.5 story home with bed and bath on main level. 3 steps and railing to enter the home. Transportation: DME/HHC: Patient has cane, walker, and raised toilet. Patient is attending outpatient therapy at [facility] s/p total knee replacement Disposition Plan: Home with resumption of outpatient therapy, family support, and follow-up plans in place. Jovita HERRERA, RN, CM
[2019-03-03] MEDS: Senna Tablet 1 TABLET PO ×2 (12:30→20:50)
[2019-03-03] MEDS: 0.9% Normal Saline 1,000 ML 125 ML IV ×2 (14:36→22:55)
[2019-03-03] MEDS: Ondansetron 4 MG/2 ML Vial IV (20:50)
[2019-03-03] MEDS: Albuterol 2.5 MG/3 ML VIAL.NEB. INHALATION (21:15)
[2019-03-04] VITALS (9 sets, daily range): BP systolic 121–146; BP diastolic 70–91; PULSE 94–112; RESP 20–24; TEMP 36.5–37.4; O2SAT 94–96
[2019-03-04] MEDS: HYDROmorphone 1 MG/ML Syringe IV (02:07)
[2019-03-04] MEDS: proMETHazine 25 MG/ML Syringe 6.25 MG IV (02:13)
[2019-03-04 05:40] LABS: Absolute Lymphocyte Count 0.33 X10^3/uL (0.83-4.51); Absolute Neutrophil Count 5.3 X10^3/uL (2.0-7.7); Basophil# 0.02 X10^3/uL; Basophil% 0.3 % (0-1); Eosinophil# 0.01 X10^3/uL; Eosinophils% 0.2 % (0-5); Hematocrit 39.5 % (40-54); Hemoglobin 12.5 g/dL (13.0-16.5); Lymphocyte # 0.33 X10^3/ul (4.0); Lymphocyte % 5.3 % (19-41); Mean Corp Hgb Conc 31.6 g/dL (32-36); Mean Corpuscular Hgb 32.9 pg (27.0-32.0); Mean Corpuscular Volume 103.9 fL (80-94); Mean Platelet Vol. 8.7 fl (6.2-12.0); Monocyte# 0.59 X10^3/uL; Monocyte% 9.4 % (0-10); NRBC Flagged by Analyzer 0 % (0-5); Neutrophil # 5.32 X10^3/uL (2.7-7.7); Neutrophil % 84.6 % (47-70); POSITIVE DIFFERENTIAL YES; POSITIVE MORPHOLOGY YES; Platelet Count 136 K/mm3 (150-450); RBC Distribution Width CV 12.9 % (11.6-14.6); RBC Distribution Width SD 49.9 fl (35.1-43.9); White Blood Count 6.3 K/mm3 (4.4-11.0)
[2019-03-04 05:52] LABS: Differential Indicated SCAN CRITERIA MET
[2019-03-04 06:05] LABS: AST(SGOT) 37 U/L (15-37); Alanine Aminotransfer ALT/SGPT 20 U/L (16-61); Albumin, Serum 2.8 g/dL (3.2-5.0); Alkaline Phosphatase 56 U/L (45-117); Anion Gap 6 (5-15); BUN 16 mg/dL (7-18); BUN/Creat Ratio 19.8 RATIO (10-20); Bilirubin, Direct 0.22 mg/dL (0.00-0.30); Calcium,Total 8.1 mg/dL (8.5-10.1); Chloride 114 mmol/L (98-107); Creatinine, Serum 0.81 mg/dL (0.70-1.30); EST Glomerular Filtration Rate 102 mL/min (>60); Est Glom Filt Rate - Afr Amer 124 mL/min (>60); Estimated Creatinine Clearance 113.11 ml/min; Globulin 3.5 g/dL (2.2-4.2); Glucose 110 mg/dL (74-106); Magnesium 2.2 mg/dL (1.6-2.6); Potassium 4.2 mmol/L (3.5-5.1); Protein, Total 6.3 g/dL (6.4-8.2); Sodium Level 145 mmol/L (136-145)
[2019-03-04] MEDS: 0.9% Normal Saline 1,000 ML 125 ML IV ×2 (06:06→14:18)
[2019-03-04] MEDS: Enoxaparin 40 MG/0.4 ML Syringe SC (06:07)
[2019-03-04] MEDS: Levothyroxine 100 MCG Tablet 200 MCG PO (06:07)
[2019-03-04 06:28] LABS: Differential Comment SCANNED
[2019-03-04] MEDS: Albuterol 2.5 MG/3 ML VIAL.NEB. INHALATION ×3 (06:33→17:53)
--- NOTE | 2019-03-04 07:08 | PCM.PN.HOSP ---
Patient Problems: Active and Suspected Problems Depression (Acute) Hypothyroidism (Acute) Acute pancreatitis (Acute) Subjective: Patient seen admitted to some improvement in his pain level. Plan is for patient to be started on clear liquid with plans to advance as tolerated. Imaging studies obtained the day prior were discussed with patient and the Objective: GENERAL: Appears ill looking HEENT: Atraumatic; moist oral mucosa EYES; Anicteric, Normal Conjunctiva NECK; supple, normal thyroid, RESPIRATORY: Diminished to auscultation bilaterally, CARDIOVASCULAR: Regular S1 S2, GI: Epigastric tenderness normoactive bowel sounds, : No Renal angle tenderness; EXTREMITIES: No edema, no clubbing, MUSCULOSKELETAL: No Joint Tenderness; NEURO: Awake; no lateralizing signs. SKIN: No Rash PSYCH; flat affect Vitals/I&O's: Vital Signs Temp Pulse Resp BP Pulse Ox 98.7 F 112 H 20 H 138/77 H 96 03/04/19 02:19 03/04/19 02:19 03/04/19 02:19 03/04/19 02:03/04/19 02:19 Oxygen Flow Rate (L/min) 3 Oxygen Delivery Method Nasal Cannula Weight: 120.2 kg Body Mass Index (BMI) 32.2 Intake and Output for Last 24 Hours 03/02/19 03/03/19 03/04/19 23:59 23:59 23:59 Intake Total 4896 / 4896 3181 / 3181 897 / 897 Output Total 1450 / 1450 Balance 3446 / 3446 3181 / 3181 897 / 897 Laboratory Results 03/04/19 05:10: WBC 6.3, RBC 3.80 L, Hgb 12.5 L, Hct 39.5 L, MCV 103.9 H, MCH 32.9 H, MCHC 31.6 L, RDW Std Deviation 49.9 H, RDW Coeff of Sommer 12.9, Plt Count 136 L, MPV 8.7, Immature Gran % (Auto) 0.200, Neut % (Auto) 84.6 H, Lymph % (Auto) 5.3 L, [place] % (Auto) 9.4, Eos % (Auto) 0.2, Baso % (Auto) 0.3, Absolute Neuts (auto) 5.3, Absolute Lymphs (auto) 0.33 L, Nucleated RBC % 0, Differential Comment SCANNED 03/04/19 05:10: Sodium 145, Potassium 4.2, Chloride 114 H, Carbon Dioxide 25.0, Anion Gap 6, BUN 16, Creatinine 0.81, Estim Creat Clear Calc 113.11, Est GFR (MDRD) Af Amer 124, Est GFR (MDRD) Non-Af 102, BUN/Creatinine Ratio 19.8, Glucose 110 H, Calcium 8.1 L, Magnesium 2.2, Total Bilirubin 0.90, Direct Bilirubin 0.22, AST 37, ALT 20, Alkaline Phosphatase 56, Total Protein 6.3 L, Albumin 2.8 L, Globulin 3.5 Current Medications Albuterol Sulfate (Ventolin Aerosols) 2.5 mg INHALATION Q4 PRN PRN Reason: wheezing sob Last Admin: 03/04/19 06:33 Dose: 2.5 mg Documented by: Citalopram Hydrobromide (Celexa) 10 mg PO DAILY [facility] Last Admin: 03/03/19 10:44 Dose: 10 mg Documented by: Enoxaparin Sodium (Lovenox) 40 mg SC DAILY@0600 [facility] Last Admin: 03/04/19 06:07 Dose: 40 mg Documented by: Hydromorphone HCl (Dilaudid Inj) 1 - 2 mg IV Q4H PRN PRN PRN Reason: SEVERE PAIN (6-05/15) Last Admin: 03/04/19 02:07 Dose: 1 mg Documented by: Pantoprazole Sodium 40 mg/ (Sodium Chloride) 110 mls @ 330 mls/hr IV Q24 [facility] Last Admin: 03/03/19 10:46 Dose: 330 mls/hr Documented by: Sodium Chloride () 1,000 mls @ 125 mls/hr IV .Q8H [facility] Last Admin: 03/04/19 06:06 Dose: 125 mls/hr Documented by: Levothyroxine Sodium (Synthroid) 100 mcg PO SuFr@0600 [facility] Last Admin: 03/02/19 05:25 Dose: 100 mcg Documented by: Levothyroxine Sodium (Synthroid) 200 mcg PO MoTuWeThSa@0600 [facility] Last Admin: 03/04/19 06:07 Dose: 200 mcg Documented by: Lorazepam (Ativan) 0.5 mg IV Q6H PRN PRN PRN Reason: ANXIETY/AGITATION Last Admin: 03/03/19 10:45 Dose: 0.5 mg Documented by: Ondansetron HCl (Zofran) 4 mg IV Q8H PRN PRN PRN Reason: NAUSEA/VOMITING Last Admin: 03/03/19 20:50 Dose: 4 mg Documented by: Promethazine HCl (Phenergan) 6.25 mg IV Q4H PRN PRN PRN Reason: NAUSEA/VOMITING Last Admin: 03/04/19 02:13 Dose: 6.25 mg Documented by: Senna (Senokot) 1 tablet PO BID [facility] Last Admin: 03/03/19 20:50 Dose: 1 tablet Documented by: Sodium Chloride () 10 - 40 ml IV UD PRN PRN Reason: SALINE FLUSH Last Admin: 03/03/19 12:28 Dose: 10 ml Documented by: Medical Necessity - Tobacco Use Smoking Status: Never smoker Assessment/Plan All Active Problems Depression (Acute) Hypothyroidism (Acute) Acute pancreatitis (Acute) Patient is a 64-year-old gentleman who presented with abdominal pain. His assessment was consistent with acute pancreatitis admitted to regular nursing floor for further management. 1. Acute pancreatitis: Of undetermined etiology admitted to regular nursing floor where patient is being managed conservatively with bowel rest pain meds and antinausea medication as well as PPI ordered MRCP for subsequent evaluation. MRCP did not demonstrate any evidence of choledocholithiasis. There was however evidence of pancreas divisum which could explain for patient's pancreatitis 2. Acute dyspnea do suspect atelectasis. Patient placed on supplemental oxygen as well as incentive spirometry chest x-ray ordered for further evaluation. ~03/04/2019; c x-ray results Left lower lobe atelectasis and/or infiltrate with blunting of the left costophrenic angle superimposed on mild degree of vascular congestion. Patient presentation more consistent with atelectasis currently afebrile no fever. Did encourage the use of incentive spirometry 3. Hypothyroidism-patient is on levothyroxine home dose continued 4. Depression with anxiety patient is on Celexa did continue patient was also placed on PRN Ativan ~03/04/2019 discontinued the use of Ativan. Patient and family request 5. DVT prophylaxis patient started on enoxaparin Clinical Impression(s) from Imaging Studies MRCP 03/03/19 08:03 IMPRESSION: 1. Simple appearing 2.2 cm pancreatic tail cyst. Differential considerations include simple cyst/chronic pseudocyst. Branch ductal IPMN or other cystic neoplasm is not entirely excluded and longer term follow-up is recommended to ensure stability. Initial follow-up CT or MRI pancreas with contrast in 6 months. Demonstration of stability over 2 years. 2. Inflammatory features in the left upper quadrant of the abdomen appear to be centered on the pancreatic tail, favoring acute pancreatitis. No significant change from imaging of 03/01/2019. 3. No evidence of choledocholithiasis. 4. There is evidence of pancreas divisum. Electronically Signed: Samuel Mayer MD at 12:42 EDT Tel , Service support , Chest X-Ray 03/03/19 08:45 IMPRESSION: Left lower lobe atelectasis and/or infiltrate with blunting of the left costophrenic angle superimposed on mild degree of vascular congestion. Electronically Signed: Jp Keller, at 13:23 EDT , Service support , Code Visit Inpatient E&M: 27937 Subs Hosp L2
[2019-03-04 07:46] LABS: Lipase 862 U/L (73-393)
[2019-03-04] MEDS: Citalopram 10 MG Tablet PO (09:32)
[2019-03-04] MEDS: Senna Tablet 1 TABLET PO ×2 (09:33→22:32)
[2019-03-04] MEDS: oxyCODONE 5 MG Tablet PO ×4 (09:36→22:32)
[2019-03-04] MEDS: 0.9% NaCl Peripheral Flush Adult/Peds IV ×2 (14:21→18:21)
[2019-03-04] MEDS: Ondansetron 4 MG/2 ML Vial IV (14:21)
[2019-03-04] MEDS: Furosemide 100 MG/10 ML Vial 60 MG IV (18:21)
[2019-03-05] VITALS (10 sets, daily range): BP systolic 111–142; BP diastolic 58–82; PULSE 91–108; RESP 16–20; TEMP 36.8–37.4; O2SAT 86–99
[2019-03-05 05:37] LABS: Absolute Lymphocyte Count 0.32 X10^3/uL (0.83-4.51); Absolute Neutrophil Count 5.6 X10^3/uL (2.0-7.7); Basophil# 0.02 X10^3/uL; Basophil% 0.3 % (0-1); Eosinophil# 0.02 X10^3/uL; Eosinophils% 0.3 % (0-5); Hematocrit 39.6 % (40-54); Hemoglobin 12.6 g/dL (13.0-16.5); Lymphocyte # 0.32 X10^3/ul (4.0); Lymphocyte % 4.8 % (19-41); Mean Corp Hgb Conc 31.8 g/dL (32-36); Mean Corpuscular Volume 103.7 fL (80-94); Mean Platelet Vol. 8.8 fl (6.2-12.0); Monocyte% 11.9 % (0-10); NRBC Flagged by Analyzer 0 % (0-5); Neutrophil # 5.55 X10^3/uL (2.7-7.7); Neutrophil % 82.4 % (47-70); POSITIVE DIFFERENTIAL YES; POSITIVE MORPHOLOGY YES; Platelet Count 149 K/mm3 (150-450); RBC Distribution Width CV 12.6 % (11.6-14.6); RBC Distribution Width SD 47.9 fl (35.1-43.9); Red Blood Count 3.82 M/mm3 (4.6-6.2); White Blood Count 6.7 K/mm3 (4.4-11.0)
[2019-03-05 05:43] LABS: Differential Indicated SCAN CRITERIA MET
[2019-03-05 05:55] LABS: AST(SGOT) 35 U/L (15-37); Alanine Aminotransfer ALT/SGPT 23 U/L (16-61); Albumin, Serum 2.7 g/dL (3.2-5.0); Alkaline Phosphatase 58 U/L (45-117); Anion Gap 6 (5-15); BUN 9 mg/dL (7-18); BUN/Creat Ratio 11.5 RATIO (10-20); Calcium,Total 7.9 mg/dL (8.5-10.1); Chloride 106 mmol/L (98-107); Creatinine, Serum 0.78 mg/dL (0.70-1.30); EST Glomerular Filtration Rate 106 mL/min (>60); Est Glom Filt Rate - Afr Amer 128 mL/min (>60); Estimated Creatinine Clearance 117.46 ml/min; Globulin 3.7 g/dL (2.2-4.2); Glucose 115 mg/dL (74-106); Potassium 3.5 mmol/L (3.5-5.1); Protein, Total 6.4 g/dL (6.4-8.2); Sodium Level 142 mmol/L (136-145)
[2019-03-05] MEDS: Enoxaparin 40 MG/0.4 ML Syringe SC (06:09)
[2019-03-05] MEDS: Levothyroxine 100 MCG Tablet 200 MCG PO (06:10)
[2019-03-05 06:26] LABS: Differential Comment SCANNED
[2019-03-05] MEDS: Albuterol 2.5 MG/3 ML VIAL.NEB. INHALATION ×3 (08:14→22:30)
[2019-03-05 08:20] LABS: Lipase 213 U/L (73-393)
--- NOTE | 2019-03-05 08:34 | PCM.PN.HOSP ---
Patient Problems: Active and Suspected Problems Depression (Acute) Hypothyroidism (Acute) Acute pancreatitis (Acute) Subjective: Patient seen pain continues to improve. He did receive Lasix with significant urine output. Plan is to increase immobilization today. He is yet to have a bowel movement. Objective: GENERAL: Patient is cooperative HEENT: Atraumatic; moist oral mucosa EYES; Anicteric, Normal Conjunctiva NECK; supple, normal thyroid, RESPIRATORY: Diminished to auscultation bilaterally, CARDIOVASCULAR: Regular S1 S2, GI: Epigastric tenderness normoactive bowel sounds, : No Renal angle tenderness; EXTREMITIES: No edema, no clubbing, MUSCULOSKELETAL: No Joint Tenderness; NEURO: Awake; no lateralizing signs. SKIN: No Rash PSYCH; flat affect Vitals/I&O's: Vital Signs Temp Pulse Resp BP Pulse Ox 98.9 F 95 18 142/82 H 97 03/05/19 08:03 03/05/19 08:14 03/05/19 08:14 03/05/19 08:03 03/05/19 08:14 Oxygen Flow Rate (L/min) 2 Oxygen Delivery Method Nasal Cannula Weight: 120.2 kg Body Mass Index (BMI) 32.2 Intake and Output for Last 24 Hours 03/03/19 03/04/19 03/05/19 23:59 23:59 23:59 Intake Total 3181 / 3181 3293 / 3293 1480 / 1480 Balance 3181 / 3181 3293 / 3293 1480 / 1480 Laboratory Results 03/05/19 05:14: WBC 6.7, RBC 3.82 L, Hgb 12.6 L, Hct 39.6 L, MCV 103.7 H, MCH 33.0 H, MCHC 31.8 L, RDW Std Deviation 47.9 H, RDW Coeff of Sommer 12.6, Plt Count 149 L, MPV 8.8, Immature Gran % (Auto) 0.300, Neut % (Auto) 82.4 H, Lymph % (Auto) 4.8 L, [place] % (Auto) 11.9 H, Eos % (Auto) 0.3, Baso % (Auto) 0.3, Absolute Neuts (auto) 5.6, Absolute Lymphs (auto) 0.32 L, Nucleated RBC % 0, Differential Comment SCANNED 03/05/19 05:14: Sodium 142, Potassium 3.5, Chloride 106, Carbon Dioxide 30.0, Anion Gap 6, BUN 9, Creatinine 0.78, Estim Creat Clear Calc 117.46, Est GFR (MDRD) Af Amer 128, Est GFR (MDRD) Non-Af 106, BUN/Creatinine Ratio 11.5, Glucose 115 H, Calcium 7.9 L, Total Bilirubin 1.20 H, Direct Bilirubin 0.30, AST 35, ALT 23, Alkaline Phosphatase 58, Total Protein 6.4, Albumin 2.7 L, Globulin 3.7 03/05/19 05:14: Lipase 213 Current Medications Albuterol Sulfate (Ventolin Aerosols) 2.5 mg INHALATION Q4 PRN PRN Reason: wheezing sob Last Admin: 03/05/19 08:14 Dose: 2.5 mg Documented by: Citalopram Hydrobromide (Celexa) 10 mg PO DAILY [facility] Last Admin: 03/04/19 09:32 Dose: 10 mg Documented by: Enoxaparin Sodium (Lovenox) 40 mg SC DAILY@0600 [facility] Last Admin: 03/05/19 06:09 Dose: 40 mg Documented by: Pantoprazole Sodium 40 mg/ (Sodium Chloride) 110 mls @ 330 mls/hr IV Q24 [facility] Last Admin: 03/04/19 09:32 Dose: 330 mls/hr Documented by: Levothyroxine Sodium (Synthroid) 100 mcg PO SuFr@0600 [facility] Last Admin: 03/02/19 05:25 Dose: 100 mcg Documented by: Levothyroxine Sodium (Synthroid) 200 mcg PO MoTuWeThSa@0600 [facility] Last Admin: 03/05/19 06:10 Dose: 200 mcg Documented by: Ondansetron HCl (Zofran) 4 mg IV Q8H PRN PRN PRN Reason: NAUSEA/VOMITING Last Admin: 03/04/19 14:21 Dose: 4 mg Documented by: Oxycodone HCl (Oxyir) 5 mg PO Q4H PRN PRN PRN Reason: PAIN Last Admin: 03/04/19 22:32 Dose: 5 mg Documented by: Promethazine HCl (Phenergan) 6.25 mg IV Q4H PRN PRN PRN Reason: NAUSEA/VOMITING Last Admin: 03/04/19 02:13 Dose: 6.25 mg Documented by: Senna (Senokot) 1 tablet PO BID [facility] Last Admin: 03/04/19 22:32 Dose: 1 tablet Documented by: Sodium Chloride () 10 - 40 ml IV UD PRN PRN Reason: SALINE FLUSH Last Admin: 03/04/19 18:21 Dose: 10 ml Documented by: Medical Necessity - Tobacco Use Smoking Status: Never smoker Assessment/Plan All Active Problems Depression (Acute) Hypothyroidism (Acute) Acute pancreatitis (Acute) Patient is a 64-year-old gentleman who presented with abdominal pain. His assessment was consistent with acute pancreatitis admitted to regular nursing floor for further management. 1. Acute pancreatitis: Of undetermined etiology admitted to regular nursing floor where patient is being managed conservatively with bowel rest pain meds and antinausea medication as well as PPI ordered MRCP for subsequent evaluation. MRCP did not demonstrate any evidence of choledocholithiasis. There was however evidence of pancreas divisum which could explain for patient's pancreatitis ~03/05/2019: Patient continues to improve clinically 2. Acute dyspnea do suspect atelectasis. Patient placed on supplemental oxygen as well as incentive spirometry chest x-ray ordered for further evaluation. ~03/04/2019; c x-ray results Left lower lobe atelectasis and/or infiltrate with blunting of the left costophrenic angle superimposed on mild degree of vascular congestion. Patient presentation more consistent with atelectasis currently afebrile no fever. Did encourage the use of incentive spirometry 3. Hypothyroidism-patient is on levothyroxine home dose continued 4. Depression with anxiety patient is on Celexa did continue patient was also placed on PRN Ativan ~03/04/2019 discontinued the use of Ativan. Patient and family request 5. DVT prophylaxis patient started on enoxaparin 6. Physical deconditioning requested for PT OT eval. Patient was advised to participate in therapy Code Visit Inpatient E&M: 02312 Subs Hosp L2
[2019-03-05] MEDS: Citalopram 10 MG Tablet PO (09:13)
[2019-03-05] MEDS: Senna Tablet 1 TABLET PO ×2 (09:13→21:57)
[2019-03-05] MEDS: 0.9% NaCl Peripheral Flush Adult/Peds IV ×2 (09:16→11:54)
[2019-03-05] MEDS: Ensure Clear 120 ML Liquid PO ×4 (09:16→21:58)
[2019-03-05] MEDS: Acetaminophen 325 MG Tablet 650 MG PO ×2 (11:52→19:43)
[2019-03-05] MEDS: Ondansetron 4 MG/2 ML Vial IV ×2 (11:54→20:00)
[2019-03-06] VITALS (14 sets, daily range): BP systolic 110–133; BP diastolic 66–73; PULSE 84–107; RESP 18–24; TEMP 36.7–37.4; O2SAT 87–97
[2019-03-06] MEDS: Albuterol 2.5 MG/3 ML VIAL.NEB. INHALATION ×3 (03:48→15:49)
[2019-03-06 06:04] LABS: Absolute Lymphocyte Count 0.29 X10^3/uL (0.83-4.51); Absolute Neutrophil Count 5.6 X10^3/uL (2.0-7.7); Basophil# 0.01 X10^3/uL; Basophil% 0.1 % (0-1); Eosinophil# 0.04 X10^3/uL; Eosinophils% 0.6 % (0-5); Hemoglobin 11.8 g/dL (13.0-16.5); Lymphocyte # 0.29 X10^3/ul (4.0); Lymphocyte % 4.2 % (19-41); Mean Corp Hgb Conc 31.9 g/dL (32-36); Mean Corpuscular Hgb 32.3 pg (27.0-32.0); Mean Corpuscular Volume 101.4 fL (80-94); Mean Platelet Vol. 8.5 fl (6.2-12.0); Monocyte# 0.85 X10^3/uL; Monocyte% 12.4 % (0-10); NRBC Flagged by Analyzer 0 % (0-5); Neutrophil # 5.63 X10^3/uL (2.7-7.7); Neutrophil % 82.1 % (47-70); POSITIVE DIFFERENTIAL YES; POSITIVE MORPHOLOGY YES; Platelet Count 167 K/mm3 (150-450); RBC Distribution Width CV 12.4 % (11.6-14.6); RBC Distribution Width SD 47.1 fl (35.1-43.9); Red Blood Count 3.65 M/mm3 (4.6-6.2); White Blood Count 6.9 K/mm3 (4.4-11.0)
[2019-03-06] MEDS: Enoxaparin 40 MG/0.4 ML Syringe SC (06:19)
[2019-03-06] MEDS: Levothyroxine 100 MCG Tablet 200 MCG PO (06:19)
[2019-03-06 06:27] LABS: Differential Indicated SCAN CRITERIA MET
[2019-03-06 06:29] LABS: BUN 7 mg/dL (7-18); BUN/Creat Ratio 10.2 RATIO (10-20); Calcium,Total 8.1 mg/dL (8.5-10.1); Chloride 103 mmol/L (98-107); Creatinine, Serum 0.68 mg/dL (0.70-1.30); EST Glomerular Filtration Rate 124 mL/min (>60); Est Glom Filt Rate - Afr Amer 150 mL/min (>60); Estimated Creatinine Clearance 134.74 ml/min; Glucose 117 mg/dL (74-106); Potassium 3.3 mmol/L (3.5-5.1); Sodium Level 141 mmol/L (136-145)
[2019-03-06 06:30] LABS: Anion Gap 6 (5-15)
[2019-03-06 06:54] LABS: Differential Comment SCANNED
--- NOTE | 2019-03-06 08:55 | DCINST_ITS ---
- Discharge Diagnoses Current Active Problems: Current Active and Chronic Problems Depression (Acute) Hypothyroidism (Acute) Acute pancreatitis (Acute) You will use the following diet at home:: No restrictions Your food should be the consistency of: Regular Discharge Activity: Return to Normal Activity Allergies/Adverse Reactions: Allergies No Known Allergies Allergy (Verified 03/01/19 21:47) Medications to take at Discharge Aspirin [Aspirin, Baby] 81 mg PO BID 03/01/19 Citalopram [Celexa] 10 mg PO DAILY 03/01/19 Levothyroxine Sodium [Synthroid] 200 mcg PO MOTUWETHSA 03/01/19 Levothyroxine [Synthroid] 100 mcg PO SUFR 03/01/19 Meloxicam [Mobic] 7.5 mg PO DAILY 03/01/19 Acetaminophen/Diphenhydramine [Tylenol Pm Ex-Strength Caplet] 2 tab PO QHS PRN PRN 03/02/19 Multivitamin with Minerals [Multiple Vitamin] 1 tab PO DAILY 03/02/19 Primary Care Physician: Ian Rodríguez MD [Primary Care Provider] - Please follow up with your Primary Care Physician in: in 5-7 days Test Results: Test results from this visit will be discussed in further detail at your follow- up appointment, if applicable. Proposed Discharge Date: 03/06/19
--- NOTE | 2019-03-06 08:56 | DS.PCM_ITS ---
Discharge Date and Diagnosis - Problem List Patient Problems: Active and Suspected Problems Acute pancreatitis (Acute) Date of Admission: 03/02/19 Date of Discharge: 03/06/19 - Primary Discharge Diagnosis Active and Suspected Problems Acute pancreatitis (Acute) - Secondary Discharge Diagnosis Chronic Problems Depression (Chronic) Hypothyroidism (Chronic) Hospital Course and Treatment Imaging Results: Clinical Impression(s) from Imaging Studies Chest CTA 03/01/19 21:59 IMPRESSION: No aneurysm or dissection or pulmonary embolism. Because of the timing of the bolus I cannot exclude small subsegmental emboli. There is free fluid seen within the left upper quadrant and probably a small amount of free fluid in the right upper quadrant. Maybe secondary to ascites however would consider CT of the abdomen post contrast for further evaluation if clinically Individualized dose optimization techniques were used for this CT. at 2323 Reported and signed by: Rachel Syed DO Electronically Signed: Rachel Syed DO at 23:22 EDT Tel , Service support , Abdomen/Pelvis CT 03/01/19 23:34 IMPRESSION: Free intraperitoneal fluid adjacent to the spleen with induration of the fat. This fluid minimally extends into the left paracolic gutter, and surrounds the tail of the pancreas. This likely represents sequelae of acute pancreatitis involving the tail the pancreas. There is, however, a 2.1 cm cystic lesion posterior to the tail of the pancreas. This is of unknown etiology. This could be fluid related to acute pancreatitis, pseudocyst, or a pancreatic cystic neoplasm. An additional possibility exists, that there has been splenic rupture, and this tissue and fluid around the spleen is blood related to that rupture. I can find no evidence for trauma superficial to the spleen Individualized dose optimization techniques were used for this CT. at 0022 Reported and signed by: Brian Cespedes MD Electronically Signed: Brian Cespedes MD at 0:21 EDT Tel , Service support , ADDENDUM: 03/02/19 0113 IMPRESSION: Free intraperitoneal fluid adjacent to the spleen with induration of the fat. This fluid minimally extends into the left paracolic gutter, and surrounds the tail of the pancreas. This likely represents sequelae of acute pancreatitis involving the tail the pancreas. There is, however, a 2.1 cm cystic lesion posterior to the tail of the pancreas. This is of unknown etiology. This could be fluid related to acute pancreatitis, pseudocyst, or a pancreatic cystic neoplasm. An additional possibility exists, that there has been splenic rupture, and this tissue and fluid around the spleen is blood related to that rupture. I can find no evidence for trauma superficial to the spleen Individualized dose optimization techniques were used for this CT. at 0022 Reported and signed by: Brian Cespedes MD N.B. : The above information has been verbally conveyed by Brian Cespedes MD to Marco Ortiz MD, on 03/02/2019 01:06:54 (ET). Electronically Signed: Brian Cespedes MD at 0:21 EDT Tel , Service support , MRCP 03/03/19 08:03 IMPRESSION: 1. Simple appearing 2.2 cm pancreatic tail cyst. Differential considerations include simple cyst/chronic pseudocyst. Branch ductal IPMN or other cystic neoplasm is not entirely excluded and longer term follow-up is recommended to ensure stability. Initial follow-up CT or MRI pancreas with contrast in 6 months. Demonstration of stability over 2 years. 2. Inflammatory features in the left upper quadrant of the abdomen appear to be centered on the pancreatic tail, favoring acute pancreatitis. No significant change from imaging of 03/01/2019. 3. No evidence of choledocholithiasis. 4. There is evidence of pancreas divisum. Electronically Signed: Samuel Mayer MD at 12:42 EDT Tel , Service support , Chest X-Ray 03/03/19 08:45 IMPRESSION: Left lower lobe atelectasis and/or infiltrate with blunting of the left costophrenic angle superimposed on mild degree of vascular congestion. Electronically Signed: Jp Menjivarmiguel, at 13:23 EDT , Service support , Chest CTA 03/06/19 09:00 IMPRESSION: Since prior study, there has been a progression of the bilateral pleural effusions with underlying atelectasis worse on the left side. No evidence of pulmonary embolus. 8 mm noncalcified nodule in the posterior aspect of the right upper lobe abutting the major fissure. Follow-up is recommended. Findings in keeping with acute pancreatitis. Electronically Signed: Jp Menjivarmiguel, at 9:51 EDT , Service support , Summary of Care Provided: Patient is a 64-year-old gentleman who presented with abdominal pain. His assessment was consistent with acute pancreatitis admitted to regular nursing floor for further management. 1. Acute pancreatitis: Of undetermined etiology admitted to regular nursing floor where patient is being managed conservatively with bowel rest pain meds and antinausea medication as well as PPI ordered MRCP for subsequent evaluation. MRCP did not demonstrate any evidence of choledocholithiasis. There was however evidence of pancreas divisum which could explain for patient's pancreatitis 2. Acute dyspnea do suspect atelectasis. Patient placed on supplemental oxygen as well as incentive spirometry chest x-ray ordered for further evaluation. ~03/04/2019; c x-ray results Left lower lobe atelectasis and/or infiltrate with blunting of the left costophrenic angle superimposed on mild degree of vascular congestion. Patient presentation more consistent with atelectasis currently afebrile no fever. Did encourage the use of incentive spirometry. CAT scan obtained on the day of patient's discharge demonstrated bilateral pleural effusion from patient's pancreatitis discharge on Lasix 3. Hypothyroidism-patient is on levothyroxine home dose continued 4. Depression with anxiety patient is on Celexa did continue patient did receive Ativan briefly during his hospital stay discontinued following episodes of delirium 5. DVT prophylaxis patient started on enoxaparin 6. Physical deconditioning requested for PT OT eval. Patient was advised to participate in therapy 7. Simple appearing 2.2 cm pancreatic tail cyst patient and informed of above instructed to follow-up with Dr. Ian Rodríguez patient primary care physician for repeat imaging studies to be performed in 6 months for follow-up Patient Problems: Active and Suspected Problems Acute pancreatitis (Acute) Objective: GENERAL: Patient is cooperative HEENT: Atraumatic; moist oral mucosa EYES; Anicteric, Normal Conjunctiva NECK; supple, normal thyroid, RESPIRATORY: Diminished to auscultation CARDIOVASCULAR: Regular S1 S2, GI: Epigastric tenderness normoactive bowel sounds, : No Renal angle tenderness; EXTREMITIES: No edema, no clubbing, MUSCULOSKELETAL: No Joint Tenderness; NEURO: Awake; no lateralizing signs. SKIN: No Rash PSYCH; flat affect - Physical Exam Vital Signs Temp Pulse Resp BP Pulse Ox 99.4 F H 89 18 110/66 96 03/06/19 01:50 03/06/19 03:48 03/06/19 03:48 03/06/19 01:50 03/06/19 01:50 Oxygen Flow Rate (L/min) [ 2 AMBULATION with Oxygen] Oxygen Flow Rate (L/min) 89 Oxygen Delivery Method Room Air Weight: 120.2 kg Body Mass Index (BMI) 32.2 Intake and Output for Last 24 Hours 03/04/19 03/05/19 03/06/19 23:59 23:59 23:59 Intake Total 3293 / 3293 2280 / 2280 1040 / 1040 Balance 3293 / 3293 2280 / 2280 1040 / 1040 Laboratory Tests Past 24 Hrs 03/06/19 03/06/19 05:24 05:24 WBC 6.9 RBC 3.65 L Hgb 11.8 L Hct 37.0 L MCV 101.4 H MCH 32.3 H MCHC 31.9 L RDW Std Deviation 47.1 H RDW Coeff of Sommer 12.4 Plt Count 167 MPV 8.5 Immature Gran % (Auto) 0.600 Neut % (Auto) 82.1 H Lymph % (Auto) 4.2 L [place] % (Auto) 12.4 H Eos % (Auto) 0.6 Baso % (Auto) 0.1 Absolute Neuts (auto) 5.6 Absolute Lymphs (auto) 0.29 L Nucleated RBC % 0 Differential Comment SCANNED Sodium 141 Potassium 3.3 L Chloride 103 Carbon Dioxide 32.0 Anion Gap 6 BUN 7 Creatinine 0.68 L Estim Creat Clear Calc 134.74 Est GFR (MDRD) Af Amer 150 Est GFR (MDRD) Non-Af 124 BUN/Creatinine Ratio 10.2 Glucose 117 H Calcium 8.1 L Discharge Diet: No Restrictions Discharge Activity: Return to Normal Activity Home Medications: Medications to take at Discharge Aspirin [Aspirin, Baby] 81 mg PO BID 03/01/19 Citalopram [Celexa] 10 mg PO DAILY 03/01/19 Levothyroxine Sodium [Synthroid] 200 mcg PO MOTUWETHSA 03/01/19 Levothyroxine [Synthroid] 100 mcg PO SUFR 03/01/19 Meloxicam [Mobic] 7.5 mg PO DAILY 03/01/19 Acetaminophen/Diphenhydramine [Tylenol Pm Ex-Strength Caplet] 2 tab PO QHS PRN PRN 03/02/19 Multivitamin with Minerals [Multiple Vitamin] 1 tab PO DAILY 03/02/19 Furosemide [Lasix] 40 mg PO BID #60 tab 03/06/19 Potassium Chloride [K-Dur] 20 meq PO BID #60 tab 03/06/19 Following Prescrptions Were Given to Patient: Potassium Chloride [K-Dur] 20 meq PO BID #60 tab Transmission Status: Received by [id number] Furosemide [Lasix] 40 mg PO BID #60 tab Transmission Status: Received by [facility] Primary Care Physician: Ian Rodríguez MD [Primary Care Provider] - Please follow up with your Primary Care Physician in: in 5-7 days Disposition: Home Minutes spent on discharge:: 35 Patient Condition:: Stable Medical Necessity - Tobacco Use Smoking Status: Never smoker Meaningful Use Info Meaningful Use Diagnoses (Choose all that apply): None applicable Code Visit Inpatient E&M: 72016 Disch Hosp
--- NOTE | 2019-03-06 09:00 | CT_ITS ---
STUDY: CTA CHEST REASON FOR EXAM: Male, 64 years old. Acute dyspnea and cough. History of acute pancreatitis. RADIATION DOSAGE (If Supplied By Facility): CTDIvol = ( 16.23 ) mGy, DLP = ( 519.17 ) mGycm TECHNIQUE: The examination was performed with the intravenous administration of 100 IV Isovue 300. Post-processing of the angiographic images was performed, with multiplanar reformation and 3D reconstruction. Individualized dose optimization techniques were used for this CT. COMPARISON: Comparison is made with prior study dated March 01, 2019. FINDINGS: Normal enhancement of the main pulmonary artery and right and left pulmonary arteries. Normal enhancement of the bilateral peripheral pulmonary arteries. There is no demonstrated pulmonary embolism. Normal thoracic aorta and visualized great vessels. There is no demonstrated aortic dissection. Normal heart and pericardium. Normal mediastinum. Normal hilar regions. Normal visualized trachea and bronchi. The lungs are well expanded. There are small bilateral pleural effusions with underlying bibasilar atelectasis and/or infiltrates worse on the left side. Increased linear markings in the left lung apex most likely representing atelectasis. This was not seen on prior study. There is a 8 mm noncalcified nodule in the posterior aspect of the right upper lobe abutting the major fissure. This was not well-seen on prior study. Follow-up is recommended. Normal chest wall structures. There are degenerative changes of thoracic spine. Peripancreatic inflammation. Thickening of the left para nephric space with fluid. Findings include with known acute pancreatitis. CT/CTA Chest W/WO Contrast IMPRESSION: Since prior study, there has been a progression of the bilateral pleural effusions with underlying atelectasis worse on the left side. No evidence of pulmonary embolus. 8 mm noncalcified nodule in the posterior aspect of the right upper lobe abutting the major fissure. Follow-up is recommended. Findings in keeping with acute pancreatitis. Electronically Signed: Jp Keller, at 9:51 EDT , Service support ,
[2019-03-06] MEDS: Ondansetron 4 MG/2 ML Vial IV (09:04)
[2019-03-06] MEDS: 0.9% NaCl Peripheral Flush Adult/Peds IV ×2 (09:04→11:55)
--- NOTE | 2019-03-06 10:05 | NURSING ---
sats 88% on ra while pt in bed.placed 2l nc on pt. notified dr arellano that pt sats 88% and replaced 2l nc on pt also that ct scan results are back.
[2019-03-06] MEDS: Citalopram 10 MG Tablet PO (10:18)
[2019-03-06] MEDS: Pantoprazole Sodium 40 MG Tablet PO (10:18)
--- NOTE | 2019-03-06 11:12 | PCM.DC ---
- Discharge Diagnoses Current Active Problems: Current Active and Chronic Problems Depression (Chronic) Hypothyroidism (Chronic) Acute pancreatitis (Acute) Discharge Activity: Return to Normal Activity Allergies/Adverse Reactions: Allergies No Known Allergies Allergy (Verified 03/01/19 21:47) Medications to take at Discharge Aspirin [Aspirin, Baby] 81 mg PO BID 03/01/19 Citalopram [Celexa] 10 mg PO DAILY 03/01/19 Levothyroxine Sodium [Synthroid] 200 mcg PO MOTUWETHSA 03/01/19 Levothyroxine [Synthroid] 100 mcg PO SUFR 03/01/19 Meloxicam [Mobic] 7.5 mg PO DAILY 03/01/19 Acetaminophen/Diphenhydramine [Tylenol Pm Ex-Strength Caplet] 2 tab PO QHS PRN PRN 03/02/19 Multivitamin with Minerals [Multiple Vitamin] 1 tab PO DAILY 03/02/19 Furosemide [Lasix] 40 mg PO BID #60 tab 03/06/19 Potassium Chloride [K-Dur] 20 meq PO BID #60 tab 03/06/19 The following prescriptions were given: Potassium Chloride [K-Dur] 20 meq PO BID #60 tab Transmission Status: Pending to [facility] Furosemide [Lasix] 40 mg PO BID #60 tab Transmission Status: Pending to [facility] Primary Care Physician: Ian Rodríguez MD [Primary Care Provider] - Please follow up with your Primary Care Physician in: in 5-7 days Test Results: Test results from this visit will be discussed in further detail at your follow-up appointment, if applicable. Proposed Discharge Date: 03/06/19
[2019-03-06] MEDS: Furosemide 100 MG/10 ML Vial 60 MG IV (11:55)
[2019-03-06] MEDS: Acetaminophen 325 MG Tablet 650 MG PO (12:01)
--- NOTE | 2019-03-06 15:32 | EKG12_ITS ---
Test Reason : Blood Pressure : / mmHG Vent. Rate : 098 BPM Atrial Rate : 098 BPM P-R Int : 158 ms QRS Dur : 100 ms QT Int : 378 ms P-R-T Axes : 025 -35 026 degrees QTc Int : 482 ms Sinus rhythm with frequent Premature ventricular complexes Left axis deviation Abnormal ECG No previous ECGs available Confirmed by JACKI SADLER ([id number]), graphic editor WALTER SANCHEZ ([id number]) on 03/12/2019 3:42:53 PM Referred By: Eric Cross Confirmed By:JACKI SADLER
[2019-03-06] MEDS: Ensure Clear 120 ML Liquid PO (15:49)
== END 2019-03-06 18:48 | disposition home or self-care (01) | DRG 439 ==
LOC: ED 22:06 → MS3 03-02 01:48
PROVIDERS: Internal Medicine; Admitting Provider Family Medicine; Emergency Provider Emergency Medicine; Family Provider Family Medicine; PCP Family Medicine; Referring Provider Family Medicine; Visit Provider Internal Medicine
DX: K85.90 Acute pancreatitis without necrosis or infection, unspecified (principal); Q45.3 Other congenital malformations of pancreas and pancreatic duct; J90 Pleural effusion, not elsewhere classified; Z96.652 Presence of left artificial knee joint; Z90.49 Acquired absence of other specified parts of digestive tract; E03.9 Hypothyroidism, unspecified; Z79.82 Long term (current) use of aspirin; Z79.1 Long term (current) use of non-steroidal anti-inflammatories (NSAID); Z79.890 Hormone replacement therapy; R06.00 Dyspnea, unspecified; F41.8 Other specified anxiety disorders
CPT/HCPCS: 36415; 71045; 71275; 74176; 74181; 80048; 80053; 80061; 80076; 83690; 83735; 84484; 85025; 85610; 85730; 93005; 94640; 97161; 97530; 99285; J7030; Q9967; A4216; J1940; J2405

== ENCOUNTER → 2019-03-24 | Outpatient (CLI) | payer OTHER, SELFPAY ==
[2019-03-24 08:51] VITALS: BMI 31.8
--- NOTE | 2019-03-24 08:56 | RAD_ITS ---
STUDY: X-RAY CHEST REASON FOR EXAM: Male, 64 years old. Pleural effusion TECHNIQUE: PA and lateral views of the chest. COMPARISON: 03/03/2019 FINDINGS: The lungs are clear and expanded. Moderate size left-sided pleural effusion with left lower lobe atelectasis. Normal size heart. Normal mediastinum and hong. Normal visualized pulmonary arteries. Normal visualized aortic arch and descending thoracic aorta. There is a dextroscoliosis of the thoracic spine. Normal visualized ribs, clavicles, and shoulders. There is no demonstrated abnormality of the visualized soft tissue structures of the upper abdomen. RAD/Chest PA and Lateral IMPRESSION: Moderate left pleural effusion with left lower lobe atelectasis. Electronically Signed: Samuel Daly MD at 9:26 EDT Tel , Service support ,
[2019-03-24 10:12] LABS: Absolute Neutrophil Count 3.7 X10^3/uL (2.0-7.7); Basophil# 0.09 X10^3/uL; Basophil% 1.8 % (0-1); Eosinophil# 0.09 X10^3/uL; Eosinophils% 1.8 % (0-5); Hematocrit 43.6 % (40-54); Hemoglobin 14.1 g/dL (13.0-16.5); Lymphocyte % 15.7 % (19-41); Mean Corp Hgb Conc 32.3 g/dL (32-36); Mean Corpuscular Hgb 31.5 pg (27.0-32.0); Mean Corpuscular Volume 97.5 fL (80-94); Mean Platelet Vol. 7.9 fl (6.2-12.0); Monocyte# 0.41 X10^3/uL; Monocyte% 8.1 % (0-10); NRBC Flagged by Analyzer 0 % (0-5); Neutrophil # 3.68 X10^3/uL (2.7-7.7); Neutrophil % 72.2 % (47-70); Platelet Count 451 K/mm3 (150-450); RBC Distribution Width CV 13.3 % (11.6-14.6); RBC Distribution Width SD 47.7 fl (35.1-43.9); Red Blood Count 4.47 M/mm3 (4.6-6.2); White Blood Count 5.1 K/mm3 (4.4-11.0)
[2019-03-24 10:56] LABS: Anion Gap 8 (5-15); BUN 10 mg/dL (7-18); BUN/Creat Ratio 9.3 RATIO (10-20); Calcium,Total 9.3 mg/dL (8.5-10.1); Chloride 105 mmol/L (98-107); Creatinine, Serum 1.07 mg/dL (0.70-1.30); EST Glomerular Filtration Rate 74 mL/min (>60); Est Glom Filt Rate - Afr Amer 89 mL/min (>60); Glucose 105 mg/dL (74-106); Lipase 316 U/L (73-393); Potassium 4.1 mmol/L (3.5-5.1); Sodium Level 138 mmol/L (136-145)
== END | disposition home or self-care (01) ==
LOC: MTLAB 08:53
PROVIDERS: Family Provider Family Medicine; PCP Family Medicine; Referring Provider Family Medicine; Visit Provider Family Medicine
DX: J90 Pleural effusion, not elsewhere classified (principal); K85.90 Acute pancreatitis without necrosis or infection, unspecified
CPT/HCPCS: 36415; 71046; 80048; 83690; 85025

== ENCOUNTER → 2019-04-15 | Outpatient (CLI) | payer OTHER, SELFPAY ==
[2019-03-24 08:51] VITALS: BMI 31.8
--- NOTE | 2019-04-15 09:36 | RAD_ITS ---
STUDY: X-RAY CHEST REASON FOR EXAM: Male, 64 years old. Pleural effusion TECHNIQUE: Frontal and lateral views of the chest. COMPARISON: 03/24/2019 FINDINGS: Stable left pleural effusion and left basilar atelectasis. Normal size heart. Normal mediastinum and hong. Normal visualized pulmonary arteries. Normal visualized aortic arch and descending thoracic aorta. There are diffuse degenerative changes of the visualized thoracic spine. Normal visualized ribs, clavicles, and shoulders. There is no demonstrated abnormality of the visualized soft tissue structures of the upper abdomen. RAD/Chest PA and Lateral IMPRESSION: Stable left pleural effusion and left basilar atelectasis. Electronically Signed: Bertram Corona MD at 16:57 EDT Tel , Service support ,
== END | disposition home or self-care (01) ==
LOC: MTRAD 09:36
PROVIDERS: Family Provider Family Medicine; PCP Family Medicine; Referring Provider Family Medicine; Visit Provider Family Medicine
DX: J90 Pleural effusion, not elsewhere classified (principal)
CPT/HCPCS: 71046

== ENCOUNTER 2019-04-25 16:00 | Outpatient (RCR) | payer OTHER, SELFPAY ==
--- NOTE | 2019-02-10 07:51 | HP.PTEVAL ---
Patient's Visit Information KRISTIN MOORE is a 64 year old M referred to Physical Therapy by PATTI Eaton with a diagnosis of L knee hemiarthroplasty. Date of Evaluation: 02/05/19 Physical Therapist: Sb Avila DPT - Visit Plan Frequency: 2-3x /Week Duration: 4-6 Weeks Plan: Start with ROM and pain control. Add in gait progression as tolerated. Once symptoms after reduced slowly integrate strengthening exercises. May use ice and IFC if needed. - Subjective Findings: Pt. is here today for his initial evaluation with diagnosis of L mele knee arthroplasty (lateral). Pt. had surgery yesterday on 02/04/19. Pt. reports having minimal pain right now, using walker as prescribed and wearing TEDS as instructed. Pt. reports no fever of chills. No N/T, no blurred vision or head aches. Pt. reports taking meds as prescribed. He works at [employer] doing [employer] and everything. Pt. reports being compliant with exercises, but only did them once. Pt. is to get james taken out in 10 days. He is hopeful to get back to all recreational activities including getting on the ground playing with his grandchildren. - Pain L knee Pain Intensity (Out of 10): 4 Pain Intensity Range: 2, 6 - Objective POSTURE: Pt. has slight loss in L TKE with increase R wt. shift. Pt. uses FWW for stability. PALPATION: No signs of infection, negative geovanna's sign. Pt. has edema throhgout, non pitting. NEURO: PT. has normal sensatino and DTR. ROM: R knee 0-0-129deg. L knee 0-8-103deg. Normal HS length and hip ROM. MMT: RLE- 5/5 throughout; LLE- ankle 5/5 throughout; knee- ext 3/5 (did not test over pressure), flexion 4/5; hip- flexion 4/5, abd 4/5, ext 4/5. GAIT: Pt. ambulates with FWW with slight reduction of R step length, decreased L TKE and decreased L knee flexion. STAIRS: completed with step to pattern with 2 HR to complete. - Goals Goal 1:: Pt. to be I with HEP. Goal Time Frame: 4-6 Weeks Goal 2:: Pt. to have increased L knee ROM to 0-0-125deg without increase in symptoms. Goal Time Frame: 4-6 Weeks Goal 3:: Pt. to have increased LLE strength by 1/2 grade of all effeected musculature. Goal Time Frame: 4-6 Weeks Goal 4:: Pt. to ambulate unlimited distances without AD without increase in symptoms. Goal Time Frame: 4-6 Weeks Goal 5:: Pt. to sleep throughout the night without increase in symptoms. Goal Time Frame: 2-4 Weeks Goal 6:: Pt. to resume all work activities without increase in symptoms. Goal Time Frame: 6-8 Weeks - Rehabilitation Potential Physical Therapy Diagnosis: Pt. has signs and symptoms consistent with L knee hemiarthroplasty. Pt. has subsequent hypomobility, weakness and difficulty walking. Pt. would benefit from PT to work on above limitations progressing functional mobility as tolerated. Rehabilitation Potential: Excellent - Anticipated Interventions Patient/Client Instruction: Educate patient on: Condition, Plan of Care, Risk Factors, Benefits of Fitness Program For the Purpose of:: To improve health and function, To foster healthy habits, To improve decision making, To facilitate caregiver knowledge, To improve self management, To prevent re-injury, To improve ability to perform tasks related to life management, To improve tolerance to ADL's Therapeutic Exercise to Include: Strength training, Power training, Endurance training, Balance training, Body mechanics, Postural training, Flexibilty training, Gait and locomotor training, Passive ROM, Active ROM For the Purpose of:: To decrease pain, To decrease swelling/inflammation, To increase ROM, To improve nutrient delivery to tissue, To increase oxygenation perfusion, To improve muscle performance and motor function, To increase tolerance to activity/condition/position, To improve gait and locomotor functions, To improve health of tissue, To decrease soft tissue restriction, To increase flexibility/ROM Manual Therapy Techniques to Include: Mobilization, Passive ROM For the Purpose of:: To decrease pain, To decrease swelling/inflammation, To increase ROM, To improve nutrient delivery to tissue IF ES: Yes Cryotherapy (ice pack, ice massage): Yes Vasopneumatic device: Yes For the Purpose of:: To decrease pain, To decrease swelling/inflammation, To increase ROM, To improve nutrient delivery to tissue, To increase oxygenation perfusion, To improve muscle performance and motor function, To improve ability to perform ADL's Thank you for the opportunity to evaluate your patient. For Medicare and Medicare HMO plans, please review the plan of care and approve it. It will need to be FAXED BACK to us at [phone] for Medicare purposes. For Medicare only, by signing this I certify the plan of care. Please let me know if there are questions or concerns regarding this plan of care. Physician Signature: Date:
--- NOTE | 2019-02-13 08:30 | HP.PTREVAL ---
PATTI Eaton, It has been my pleasure to treat KRISTIN MOORE over the last 5 visits for L knee hemiarthroplasty. Please see the progress note below for an update on the physical therapy plan of care! Subjective: Pt. reports I am doing really well. He reports beign eager to get away from the walker. Pt. reports no pain pre treatment this date. Pt. pleased with progress. Objective/Function: Pt. tolerated all PT. I had patient walk without AD throughout clinic this date. Pt. did very well. Pt. tolerated all PT wihtout adverse reaction. ROM this date 0-2-121deg. I talked with patient about walking in his home wihtout AD. PT. is okay to do so. Pt. is to follow up with physician next week to staple removal. Pt. urged to use cane out in community and to use if he feels he needs it for safety or to offset imbalance. Plan Plan: Cont. with POC. Focus on functional mobility and ROM. Progress away from AD as safety and tolerance progresses. Goals Goal 1:: Pt. to be I with HEP. Goal Time Frame: 4-6 Weeks Goal Progress: Progressing Goal 2:: Pt. to have increased L knee ROM to 0-0-125deg without increase in symptoms. Goal Time Frame: 4-6 Weeks Goal Progress: Progressing Goal 3:: Pt. to have increased LLE strength by 1/2 grade of all effeected musculature. Goal Time Frame: 4-6 Weeks Goal Progress: Progressing Goal 4:: Pt. to ambulate unlimited distances without AD without increase in symptoms. Goal Time Frame: 4-6 Weeks Goal Progress: Progressing Goal 5:: Pt. to sleep throughout the night without increase in symptoms. Goal Time Frame: 2-4 Weeks Goal Progress: Progressing Goal 6:: Pt. to resume all work activities without increase in symptoms. Goal Time Frame: 6-8 Weeks Goal Progress: Progressing Anticipated Interventions Patient/Client Instruction: Educate patient on: Condition, Plan of Care, Risk Factors, Benefits of Fitness Program For the Purpose of:: To improve health and function, To foster healthy habits, To improve decision making, To facilitate caregiver knowledge, To improve self management, To prevent re-injury, To improve ability to perform tasks related to life management, To improve tolerance to ADL's Therapeutic Exercise to Include: Strength training, Power training, Endurance training, Balance training, Body mechanics, Postural training, Flexibilty training, Gait and locomotor training, Passive ROM, Active ROM For the Purpose of:: To decrease pain, To decrease swelling/inflammation, To increase ROM, To improve nutrient delivery to tissue, To increase oxygenation perfusion, To improve muscle performance and motor function, To increase tolerance to activity/condition/position, To improve gait and locomotor functions, To improve health of tissue, To decrease soft tissue restriction, To increase flexibility/ROM Manual Therapy Techniques to Include: Mobilization, Passive ROM For the Purpose of:: To decrease pain, To decrease swelling/inflammation, To increase ROM, To improve nutrient delivery to tissue IF ES: Yes Cryotherapy (ice pack, ice massage): Yes Vasopneumatic device: Yes For the Purpose of:: To decrease pain, To decrease swelling/inflammation, To increase ROM, To improve nutrient delivery to tissue, To increase oxygenation perfusion, To improve muscle performance and motor function, To improve ability to perform ADL's Please do not hesitate to contact me at [phone] by phone or if you have questions or concerns regarding this new plan of care! Sincerely, Sb Avila DPT
--- NOTE | 2019-03-18 13:07 | HP.PTREVAL ---
Chuck Bellamy PA-C, It has been my pleasure to treat KRISTIN MOORE over the last 11 visits for L knee hemiarthroplasty. Please see the progress note below for an update on the physical therapy plan of care! Subjective: Pt. is here today. Pt. had missed his last few appointments after being in the hospital with panceatitis. Pt. reports being in hospital for 5 days. He is feeling better, but still very run down. Pt. is walking with cane for my safety net. Pt. reports having some L knee pain, but not too much. He has also started to increase his walking again. Pt. reprots 08/15 pain pre treatment this date. Pt. is to follow up with physician later this week. Objective/Function: Pt. tolerated all PT without adverse reaction. ROM: 0-0-125deg mild incerase NW with knee flexion. Marked joint effusion non pitting. MMT: 4/5 throughout. Ambulation: Pt. has good step length and knee flexion with gait, but is walking with cane due to new onset of fatigue. STAIRS: Pt. is able to negotiation without LOB, but did have increased fatigue. PT. maintained above 95 SpO2 throughout PT, but did have increased fatigue, SOB with gait and exercises. Pt. is generally run down reducing his ability to walk. Pt. was on supplemental O2, but is no off. pt. is hopeful to increase his strength and general endurance getting back to work activities. Plan Plan: Pt. to is follow up with physician later this week. My consern is with the patients new onset of joint effusion. He has minimal heat and no redness. He is also very deconditioned after being in hospital for close to a week. I would like to slowly increase his endurance and strength again progressing back to work activities. Goals Goal 1:: Pt. to be I with HEP. Goal Time Frame: 4-6 Weeks Goal Progress: Progressing Goal 2:: Pt. to have increased L knee ROM to 0-0-125deg without increase in symptoms. Goal Time Frame: 4-6 Weeks Goal Progress: Goal Met Goal 3:: Pt. to have increased LLE strength by 1/2 grade of all effeected musculature. Goal Time Frame: 4-6 Weeks Goal Progress: Progressing Goal 4:: Pt. to ambulate unlimited distances without AD without increase in symptoms. Goal Time Frame: 4-6 Weeks Goal Progress: Progressing Goal 5:: Pt. to sleep throughout the night without increase in symptoms. Goal Time Frame: 2-4 Weeks Goal Progress: Progressing Goal 6:: Pt. to resume all work activities without increase in symptoms. Goal Time Frame: 6-8 Weeks Goal Progress: Progressing Anticipated Interventions Patient/Client Instruction: Educate patient on: Condition, Plan of Care, Risk Factors, Benefits of Fitness Program For the Purpose of:: To improve health and function, To foster healthy habits, To improve decision making, To facilitate caregiver knowledge, To improve self management, To prevent re-injury, To improve ability to perform tasks related to life management, To improve tolerance to ADL's Therapeutic Exercise to Include: Strength training, Power training, Endurance training, Balance training, Body mechanics, Postural training, Flexibilty training, Gait and locomotor training, Passive ROM, Active ROM For the Purpose of:: To decrease pain, To decrease swelling/inflammation, To increase ROM, To improve nutrient delivery to tissue, To increase oxygenation perfusion, To improve muscle performance and motor function, To increase tolerance to activity/condition/position, To improve gait and locomotor functions, To improve health of tissue, To decrease soft tissue restriction, To increase flexibility/ROM Manual Therapy Techniques to Include: Mobilization, Passive ROM For the Purpose of:: To decrease pain, To decrease swelling/inflammation, To increase ROM, To improve nutrient delivery to tissue IF ES: Yes Cryotherapy (ice pack, ice massage): Yes Vasopneumatic device: Yes For the Purpose of:: To decrease pain, To decrease swelling/inflammation, To increase ROM, To improve nutrient delivery to tissue, To increase oxygenation perfusion, To improve muscle performance and motor function, To improve ability to perform ADL's Please do not hesitate to contact me at [phone] by phone or if you have questions or concerns regarding this new plan of care! Sincerely, Sb Avila DPT
--- NOTE | 2019-06-02 10:01 | HP.PTDCSUM ---
HP - PT D/C Summary It has been my pleasure to treat KRISTIN MOORE under orders from Chuck Bellamy PA-C, for the diagnosis of L knee hemiarthroplasty for a total of 23 visit(s). Discharge Date: Please see the following information for a summary of their discharge status. - Subjective Subjective: Pt. reports being 100% better overall. Pt. reports no nwe issues. I have most of my endurance is better and my knee is doing well. He is getting ready to go back to work. - Pain L knee Pain Intensity (Out of 10): 0 - Overall Improvement % Improvement: 100 - Objective Objective/Function: ROM: 0-0-132deg. MMT 5/5 throughout; gait: pt. ambulates wihtout AD without adverse reaction. Pt. contiunes to do very well. He had difficulty after having pancreatitis, but is doing much better no increase in symptoms. Pt.will be DC to HEP at this point in time. - Goals Goal 1:: Pt. to be I with HEP. Goal Progress: Goal Met Goal 2:: Pt. to have increased L knee ROM to 0-0-125deg without increase in symptoms. Goal Progress: Goal Met Goal 3:: Pt. to have increased LLE strength by 1/2 grade of all effeected musculature. Goal Progress: Goal Met Goal 4:: Pt. to ambulate unlimited distances without AD without increase in symptoms. Goal Progress: Goal Met Goal 5:: Pt. to sleep throughout the night without increase in symptoms. Goal Progress: Goal Met Goal 6:: Pt. to resume all work activities without increase in symptoms. Goal Progress: Goal Met - Plan Plan: PT. to be DC. - D/C Information If there are questions or concerns regarding this patient's physical therapy, please feel free to call me at [phone]. Thank you for the referral of this patient. Sincerely, Sb Avila DPT
== END 2019-04-25 19:00 | disposition home or self-care (01) ==
LOC: PT 16:00
PROVIDERS: Family Provider Family Medicine; PCP Family Medicine; Referring Provider Physician Assistant Surgical; Visit Provider Physician Assistant Surgical
DX: M17.12 Unilateral primary osteoarthritis, left knee (principal); Z96.652 Presence of left artificial knee joint; Z47.1 Aftercare following joint replacement surgery
CPT/HCPCS: 97016; 97110; 97161; 97530

== ENCOUNTER → 2019-05-19 | Outpatient (CLI) | payer OTHER, SELFPAY ==
[2019-03-24 08:51] VITALS: BMI 31.8
--- NOTE | 2019-05-19 13:30 | RAD_ITS ---
STUDY: X-RAY CHEST REASON FOR EXAM: Male, 64 years old. Pleural effusion TECHNIQUE: PA and lateral views of the chest. COMPARISON: April 15, 2019 chest x-ray FINDINGS: There is elevation of the bilateral hemidiaphragms. There is trace blunting of the left costophrenic angle. There is left-sided density in the left lower lobe. There is borderline cardiomegaly. Normal mediastinum and hong. Normal visualized pulmonary arteries. There is atherosclerotic calcification of the aortic arch with tortuosity. There are diffuse degenerative changes of the visualized thoracic spine. Normal visualized ribs, clavicles, and shoulders. There is no demonstrated abnormality of the visualized soft tissue structures of the upper abdomen. RAD/Chest PA and Lateral IMPRESSION: Persistent but smaller left effusion. Electronically Signed: Racehl Portillo MD at 17:57 EDT Tel , Service support ,
== END | disposition home or self-care (01) ==
LOC: MTRAD 13:29
PROVIDERS: Family Provider Family Medicine; PCP Family Medicine; Referring Provider Family Medicine; Visit Provider Family Medicine
DX: J90 Pleural effusion, not elsewhere classified (principal)
CPT/HCPCS: 71046

== ENCOUNTER → 2019-05-23 | Outpatient (CLI) | payer OTHER, SELFPAY ==
[2019-03-24 08:51] VITALS: BMI 31.8
[2019-05-23 10:52] LABS: Thyroid Stim Hormone (TSH) 0.82 uIU/mL (0.358-3.74)
== END | disposition home or self-care (01) ==
LOC: MFPLAB 08:43
PROVIDERS: Family Provider Family Medicine; PCP Family Medicine; Referring Provider Family Medicine; Visit Provider Family Medicine
DX: E89.0 Postprocedural hypothyroidism (principal)
CPT/HCPCS: 36415; 84443

== ENCOUNTER → 2019-10-17 15:43 | Outpatient (CLI) | payer OTHER, SELFPAY ==
[2019-03-24 08:51] VITALS: BMI 31.8
--- NOTE | 2019-10-17 15:46 | CT_ITS ---
STUDY: CT ABDOMEN WITH AND WITHOUT CONTRAST REASON FOR EXAM: Male, 64 years old. PANCREATIC CYST and history of pancreatitis, cholecystectomy RADIATION DOSAGE (If Supplied By Facility): CTDIvol = ( 21.80 ) mGy, DLP = ( 1496.26 ) mGycm TECHNIQUE: Transaxial images were obtained pre and post I.V. administration of 100 ml isovue 300, and with oral contrast. Sagittal and coronal images were reconstructed. Individualized dose optimization techniques were used for this CT. COMPARISON: CT 03/01/2019 FINDINGS: The visualized lung bases are unremarkable. The visualized portions of the heart are within normal limits. Normal liver. There is non-visualization of the gallbladder, which may be secondary to either contraction or a prior cholecystectomy. Normal spleen. There is a lobular thick-walled fluid collection of the left upper quadrant interposed between the spleen and pancreatic tail (image 30), measuring approximately 5.5 x 8.1 cm that is in region of inflammation evident on prior CT. No significant wall enhancement. There is also a low density nonenhancing cystic lesion along the posterior pancreatic body, measuring 2.0 cm (image 28) and does not demonstrate significant contrast enhancement. The lesion is stable in size since the prior study. No additional pancreatic mass identified. The splenic vein opacifies normally. Normal bilateral adrenal glands. Bilateral renal calculi without hydronephrosis. There are parapelvic cysts, grossly similar. There is a simple low density cyst of the inferior right kidney measuring 1.4 cm. Normal visualized stomach. Normal visualized small intestine. Normal visualized colon. The appendix is visualized and appears normal. There is diffuse atherosclerotic calcification of the abdominal aorta with elongation and tortuosity, but without a demonstrated aneurysm. Normal inferior vena cava. Normal retroperitoneum. Normal abdominal wall. There are diffuse degenerative changes of the visualized lumbar spine. CT/Abdomen W/WO IV Contrast IMPRESSION: 1. Complex lobular fluid collection in the left upper abdomen likely representing chronic pseudocyst. 2. 2.0 nonenhancing cystic lesion posterior to the pancreatic body, stable, compatible with pseudocyst. 3. Bilateral nephrolithiasis. No hydronephrosis. 4. Bilateral simple renal cysts. Electronically Signed: Link Carrero MD ([place]) at 15:56 EDT , Service support ,
[2019-10-17 16:00] LABS: CREATININE FINGERSTICK 0.9 mg/dL (0.70-1.30); EGFR FINGERSTICK > 60.0000 mL/min (>60)
== END ==
PROVIDERS: PCP Family Medicine; Referring Provider Family Medicine; Visit Provider Family Medicine
DX: K86.2 Cyst of pancreas (principal)
CPT/HCPCS: 74170; Q9967

== ENCOUNTER → 2020-04-02 08:49 | Outpatient (CLI) | payer MEDICARE, BC, SELFPAY ==
[2019-03-24 08:51] VITALS: BMI 31.8
[2020-04-02 12:54] LABS: ALB/GLOB Ratio 1.2 RATIO (0.9-2.4); AST(SGOT) 21 U/L (15-37); Alanine Aminotransfer ALT/SGPT 23 U/L (16-61); Albumin, Serum 3.9 g/dL (3.2-5.0); Alkaline Phosphatase 74 U/L (45-117); Anion Gap 7 (5-15); BUN 15 mg/dL (7-18); BUN/Creat Ratio 20.2 RATIO (10-20); Calcium,Total 8.7 mg/dL (8.5-10.1); Chloride 110 mmol/L (98-107); Cholesterol 172 mg/dL (200); Creatinine, Serum 0.74 mg/dL (0.70-1.30); EST Glomerular Filtration Rate 112 mL/min (>60); Est Glom Filt Rate - Afr Amer 136 mL/min (>60); Globulin 3.3 g/dL (2.2-4.2); Glucose 83 mg/dL (74-106); High Density Lipoprotein 67 mg/dL; Potassium 4.3 mmol/L (3.5-5.1); Protein, Total 7.2 g/dL (6.4-8.2); Sodium Level 144 mmol/L (136-145); Thyroid Stim Hormone (TSH) 0.61 uIU/mL (0.358-3.74); Triglycerides 40 mg/dL; Very Low Density Lipoprotein 8 mg/dL (5-40)
== END ==
PROVIDERS: PCP Family Medicine; Referring Provider Family Medicine; Visit Provider Family Medicine
DX: E89.0 Postprocedural hypothyroidism (principal); E78.00 Pure hypercholesterolemia, unspecified
CPT/HCPCS: 36415; 80053; 80061; 84443

== ENCOUNTER → 2020-04-14 16:45 | Outpatient (CLI) | payer MEDICARE, BC, SELFPAY ==
[2019-03-24 08:51] VITALS: BMI 31.8
--- NOTE | 2020-04-14 16:47 | CT_ITS ---
STUDY: CT CHEST WITH CONTRAST REASON FOR EXAM: Male, 65 years old. FOLLOW UP PULMONARY NODULE. 8 MM NON-CALCIFIED NODULE POSTERIOR ASPECT RUL ABUTTING MAJOR FISSURE ON CTA CHEST 03/06/19 RADIATION DOSAGE (If Supplied By Facility): CTDIvol = ( 19.465 ) mGy, DLP = ( 749.87 ) mGycm TECHNIQUE: Transaxial imaging was performed following intravenous administration of IV 100mL Isovue-370. Individualized dose optimization techniques were used for this CT. COMPARISON: 03/06/2019 FINDINGS: Previously identified right upper lobe nodule is not visualized at this time. However, there are 2 tiny noncalcified nodules measuring approximately 3 mm in the right upper lobe and 3-4 mm in the right lower lobe. There is no demonstrated pleural abnormality. Normal heart and pericardium. Normal mediastinum. Normal hilar regions. Normal enhanced pulmonary arteries. Normal aorta arch and descending thoracic aorta. Dorsal spine demonstrates degenerative change. There is residual fluid within the left upper quadrant which has decreased in size as well as a cystic structure likely representing a pancreatic pseudocyst. CT/Chest WITH Contrast IMPRESSION: Previously identified right upper lobe nodule is not visualized and was likely inflammatory.. . There are 2 tiny nodules in the right upper and lower lobes measuring in the 3 to 4 mm size range of uncertain clinical significance not well visualized on previous study due to fluid and motion artifact. Would recommend additional imaging utilizing FLEISCHNER Society criteria. Persistent collection in the left upper quadrant which has decreased in size since previous study in association with a cystic structure measuring approximately 2.7 x 1.8 cm most likely pancreatic pseudocyst Electronically Signed: Ayaan Dugan MD at 18:04 EDT , Service support ,
== END ==
PROVIDERS: PCP Family Medicine; Referring Provider Family Medicine; Visit Provider Family Medicine
DX: R91.1 Solitary pulmonary nodule (principal)
CPT/HCPCS: 71260; Q9967

== ENCOUNTER 2020-06-17 15:30 | Outpatient (RCR) | payer MEDICARE, BC, SELFPAY ==
[2019-03-24 08:51] VITALS: BMI 31.8
--- NOTE | 2020-05-19 13:31 | HP.PTEVAL_ITS ---
Patient's Visit Information KRISTIN MOORE is a 65 year old M referred to Physical Therapy by Dr. Demetri Bro MD with a diagnosis of Right RTC Tear. Date of Evaluation: 05/19/20 Physical Therapist: Hazel Adams DPT - Visit Plan Frequency: 2x /Week Duration: 4 Weeks Plan: Focus on PAINFREE ROM and scapular s/s. HEP 05/19:Isometric: abd, add, extn, flexion, flexion wall wash - Subjective Vacation in February he fell on his right shoulder- ended up down on the ground- so his boys lifted him back up. Didn't think anything was majorly wrong- his right shoulder still hurts. Had and MRI last week- showed tears in the shoulder- MD wants to do a reverse total shoulder. Wants to do therapy first to see if he doesn't really want to have surgery. Pain is located along the top of the shoulder-radiates to the deltoid. Sometimes he has a hard time lifting his arm overhead- he had an injection last week but it seems to have already worn off. No N/T in the fingers- no cervical pain, PINO, blurred vision or dizziness. Worst: 03/15 Agg: reaching overhead. If he puts pressure on it he has more ROM and increased strength. Eases: injection, Meloxicam Best: 10/13. Describes the pain as more dull and achy- no stabbing or grabbing pains when he moves it. Right hand dominate. Sleep: doesnt sleep well anyways 2-3 hours at a time- the more he lays on it and puts pressure on it the better it feels- side slepper. 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 X-ray and MRI. PMHx: pancreatitis, left partial TKR, none Meds: meloxicam, synthroid, acelopram. - Objective Posture: FH, RS- increased guarding of the right UE. Palpatoin: tender along infraspinatus, upper trap, bicipital groove. Sensation: WNL. ROM: Cervical: WNL Shoulder: flexion: 120 degrees, Abd: 140 degrees, IR: L3, ER: 30 degrees pain at end ranges, Elbow/Wrist/hand: WNL. Strength: Isometric:4/5 with moderate discomfort with max. Scap: fair minus, Elbow: 4+/5, wrist: 5/5, Biodiesel Product Manager: equal to other side. Special Test: Impingment: positive, Empty Can: positive - Goals Goal 1:: Patient will be I with HEP and progression Goal Time Frame: 4-6 Weeks Goal 2:: Patient will demo full AROM of the right shoulder Goal Time Frame: 4-6 Weeks Goal 3:: Patient will maintain proper posture t/o tx session to demo increased scap s/s. Goal Time Frame: 4-6 Weeks - Rehabilitation Potential Physical Therapy Diagnosis: Patient presents with hypomobility- he has decreased ROM, strength and muscular endurance leading to poor posture and increased pain with ADL's Rehabilitation Potential: Fair - Anticipated Interventions Patient/Client Instruction: Educate patient on: Benefits of Fitness Program Therapeutic Exercise to Include: Strength training, Endurance training, Agility training, Body mechanics, Postural training, Flexibilty training, Gait and locomotor training, Neuromotor development, Passive ROM, Active ROM, Dynamic Lumbar Stabilization, Scapular Strength/Stabilization For the Purpose of:: To improve muscle performance and motor function TENS: Yes Cryotherapy (ice pack, ice massage): Yes Thermo therapy (hot pack): Yes Ultrasound (thermal/non thermal): Yes Thank you for the opportunity to evaluate your patient. For Medicare and Medicare HMO plans, please review the plan of care and approve it. It will need to be FAXED BACK to us at [phone] for Medicare purposes. For Medicare only, by signing this I certify the plan of care. Please let me know if there are questions or concerns regarding this plan of care. Physician Signature: Date:
--- NOTE | 2020-06-17 15:48 | HP.PTDCSUM_ITS ---
It has been my pleasure to treat KRISTIN MOORE referred by Dr. Demetri Bro MD, with the diagnosis of Right RTC Tear for a total of 9 visit(s). Discharge Date: Please see the following information for a summary of their discharge status. Subjective: Patient reports that his shoulder is better- he has to watch when he picks up the grandkids. Feels comfortable with the exercises. No pain in the last couple of days. Right Shoulder Pain Intensity (Out of 10): 0 % Improvement: 90 Objective/Function: Posture: good throughout session Palpatoin: not tender to touch. Sensation: WNL. ROM: Cervical: WNL Shoulder: WNL in all ranges Elbow/Wrist/hand: WNL. Strength: Isometric:4+/5 with moderate discomfort with max. Scap: fair, Elbow: 5/5, wrist: 5/5, Child Welfare Assistant: equal to other side. Special Test: Impingment: positive, Empty Can: positive Goal 1:: Patient will be I with HEP and progression Goal Progress: Goal Met Goal 2:: Patient will demo full AROM of the right shoulder Goal Progress: Goal Met Goal 3:: Patient will maintain proper posture t/o tx session to demo increased scap s/s. Goal Progress: Goal Met Plan: Discharge to I home exercise program. If there are questions or concerns regarding this patient's physical therapy, please feel free to call me at [phone]. Thank you for the referral of this patient. Sincerely, Hazel Adams DPT
== END 2020-06-17 19:00 | disposition home or self-care (01) ==
LOC: PT 15:30
PROVIDERS: PCP Family Medicine; Referring Provider Specialist; Visit Provider Specialist
DX: S46.011D Strain of muscle(s) and tendon(s) of the rotator cuff of right shoulder, subsequent encounter (principal)
CPT/HCPCS: 97110; 97162; 97164

== ENCOUNTER → 2020-09-10 09:29 | Outpatient (CLI) | payer MEDICARE, BC, SELFPAY ==
[2019-03-24 08:51] VITALS: BMI 31.8
[2020-09-10 12:37] LABS: ALB/GLOB Ratio 1.1 RATIO (0.9-2.4); AST(SGOT) 19 U/L (15-37); Alanine Aminotransfer ALT/SGPT 29 U/L (16-61); Albumin, Serum 3.8 g/dL (3.2-5.0); Alkaline Phosphatase 74 U/L (45-117); Anion Gap 5 (5-15); BUN 9 mg/dL (7-18); BUN/Creat Ratio 10.8 RATIO (10-20); Calcium,Total 8.6 mg/dL (8.5-10.1); Chloride 110 mmol/L (98-107); Cholesterol 198 mg/dL (200); Creatinine, Serum 0.83 mg/dL (0.70-1.30); EST Glomerular Filtration Rate 98 mL/min (>60); Est Glom Filt Rate - Afr Amer 119 mL/min (>60); Globulin 3.6 g/dL (2.2-4.2); Glucose 91 mg/dL (74-106); High Density Lipoprotein 70 mg/dL; PSA,Total - Annual Screen 3.19 ng/mL (0.00-4.00); Potassium 3.9 mmol/L (3.5-5.1); Protein, Total 7.4 g/dL (6.4-8.2); Sodium Level 140 mmol/L (136-145); Thyroid Stim Hormone (TSH) 0.87 uIU/mL (0.358-3.74); Triglycerides 61 mg/dL; Very Low Density Lipoprotein 12 mg/dL (5-40)
== END ==
PROVIDERS: PCP Family Medicine; Referring Provider Family Medicine; Visit Provider Family Medicine
DX: E78.00 Pure hypercholesterolemia, unspecified (principal); E89.0 Postprocedural hypothyroidism; Z12.5 Encounter for screening for malignant neoplasm of prostate
CPT/HCPCS: 36415; 80053; 80061; 84153; 84443; G0103

== ENCOUNTER → 2021-04-12 11:08 | Outpatient (CLI) | payer MEDICARE, BC, SELFPAY ==
[2021-04-12 12:30] LABS: PSA,Total - Annual Screen 3.76 ng/mL (0.00-4.00)
== END ==
PROVIDERS: PCP Family Medicine; Visit Provider Family Medicine
DX: Z12.5 Encounter for screening for malignant neoplasm of prostate (principal)
CPT/HCPCS: 36415; 84153; G0103

== ENCOUNTER → 2021-04-22 12:46 | Outpatient (CLI) | payer MEDICARE, BC, SELFPAY ==
--- NOTE | 2021-04-22 12:50 | CT_ITS ---
STUDY: CT CHEST WITH CONTRAST REASON FOR EXAM: Male, 66 years old. PULM NODULE follow-up. RADIATION DOSAGE (If Supplied By Facility): CTDIvol = ( 16.47 ) mGy, DLP = ( 762.49 ) mGycm TECHNIQUE: Transaxial imaging was performed following intravenous administration of IV 100mL Isovue-300. Multiplanar coronal and sagittal images were reformatted. Individualized dose optimization techniques were used for this CT. COMPARISON: Comparison is made with prior study dated 04/14/2020. FINDINGS: Stable appearance of 2 tiny noncalcified nodules measuring approximately 3 mm. One is located in the right upper lobe and the other in the right lower lobe. There is no demonstrated pleural abnormality. Normal heart and pericardium. Normal mediastinum. Normal hilar regions. Normal enhanced pulmonary arteries. Normal aorta arch and descending thoracic aorta. There are degenerative changes of the thoracic spine. Stable residual fluid collection in the left upper quadrant adjacent to the left paraspinal region. This most likely represents chronic pseudocyst of the tail of the pancreas. CT/Chest WITH Contrast IMPRESSION: Stable examination. Electronically Signed: Jp Keller MD at 13:51 EDT , Service support ,
[2021-04-22 13:16] LABS: CREATININE FINGERSTICK 0.7 mg/dL (0.70-1.30); EGFR FINGERSTICK > 60.0000 mL/min (>60)
== END ==
PROVIDERS: PCP Family Medicine; Visit Provider Family Medicine
DX: R91.1 Solitary pulmonary nodule (principal)
CPT/HCPCS: 71260; Q9967

== ENCOUNTER 2021-10-24 11:11 | Outpatient (CLI) | payer MEDICARE, BC, SELFPAY ==
[2021-10-24 12:32] LABS: AST(SGOT) 22 U/L (15-37); Alanine Aminotransfer ALT/SGPT 20 U/L (16-61); Albumin, Serum 3.9 g/dL (3.2-5.0); Alkaline Phosphatase 79 U/L (45-117); Anion Gap 3 (5-15); BUN 14 mg/dL (7-18); BUN/Creat Ratio 15.3 RATIO (10-20); Calcium,Total 9.3 mg/dL (8.5-10.1); Chloride 110 mmol/L (98-107); Cholesterol 169 mg/dL (200); Creatinine, Serum 0.91 mg/dL (0.70-1.30); EST Glomerular Filtration Rate 88 mL/min (>60); Est Glom Filt Rate - Afr Amer 106 mL/min (>60); Glucose 96 mg/dL (74-106); High Density Lipoprotein 65 mg/dL; Potassium 4.4 mmol/L (3.5-5.1); Protein, Total 7.9 g/dL (6.4-8.2); Sodium Level 140 mmol/L (136-145); Triglycerides 59 mg/dL; Very Low Density Lipoprotein 12 mg/dL (5-40)
[2021-10-25 16:00] LABS: PSA,Total- Diagnostic 4.24 ng/mL (0.0-4.0)
== END 2021-10-24 23:59 | disposition home or self-care (01) ==
LOC: MFPLAB 11:13
PROVIDERS: PCP Family Medicine; Referring Provider Family Medicine; Visit Provider Family Medicine
DX: R97.20 Elevated prostate specific antigen [PSA] (principal); E78.00 Pure hypercholesterolemia, unspecified; E89.0 Postprocedural hypothyroidism
CPT/HCPCS: 36415; 80053; 80061; 84153; 84443

== ENCOUNTER → 2022-01-03 | Outpatient (CLI) | payer MEDICARE, BC, SELFPAY ==
[2022-01-03 17:01] LABS: Mucous, Urine 0 SEEN /hpf (<or=2+); Red Blood Cells-Urine 0 SEEN /hpf (0-5); White Blood Cells 0 SEEN /hpf (0-5)
[2022-01-03 17:09] LABS: Color, Urine Yellow (Yellow); Glucose, Dipstick Normal (Normal); Ketone-Dipstick Negative (Negative); Leukocyte Esterase-Dipstick 25 /ul (Negative); Nitrite-Dipstick Negative (Negative); Occult Blood-Urine 25 /ul (Negative); Protein-Dipstick 100 mg/dl (Negative); Urine Bilirubin Dipstick Negative (Negative); Urine Clarity Cloudy (Clear); Urine Urobilinogen Normal (Normal)
[2022-01-03 17:19] LABS: Bacteria 4+ /hpf (None Seen)
[2022-01-03 17:20] LABS: Coarse Granular Cast 10-25 SEEN /lpf (0-5 /lpf); Squamous Epithelial Cells - UA 0-5 SEEN /hpf (0-5)
== END | disposition home or self-care (01) ==
LOC: LABSPEC 16:54
PROVIDERS: PCP Family Medicine; Visit Provider Urology
DX: R31.21 Asymptomatic microscopic hematuria (principal)
CPT/HCPCS: 81001

== ENCOUNTER → 2022-01-11 | Outpatient (CLI) | payer MEDICARE, BC, SELFPAY ==
--- NOTE | 2022-01-11 07:18 | CT_ITS ---
STUDY: CT ABDOMEN AND PELVIS WITHOUT CONTRAST REASON FOR EXAM: Male, 66 years old. HEMATURIA RADIATION DOSAGE (If Supplied By Facility): CTDIvol = ( 15.41 ) mGy, DLP = ( 854.47 ) mGycm TECHNIQUE: Transaxial images were obtained from the dome of the diaphragm to the symphysis pubis without oral contrast, and without intravenous contrast. Sagittal and coronal images were reconstructed. Individualized dose optimization techniques were used for this CT. COMPARISON: 10/17/2019 FINDINGS: The visualized lung bases are unremarkable. The visualized portions of the heart are within normal limits. Normal liver. There is non-visualization of the gallbladder, which may be secondary to either contraction or a prior cholecystectomy. Normal spleen. Improved scarring between the spleen and pancreas and left adrenal gland. Normal pancreas. Normal bilateral adrenal glands. Multiple bilateral nonobstructing renal stones. The largest stone is in the lower pole right kidney measures 4 mm. No hydronephrosis, ureteral stone, ureteral dilatation. Normal visualized stomach. Normal small intestine. Normal colon. There is non-visualization of the appendix. Normal abdominal aorta. Normal inferior vena cava. Normal retroperitoneum. Normal urinary bladder. There are prostatic calcifications. Normal abdominal wall. Mild levoscoliosis lumbar spine with degenerative disc disease per CT/Abdomen/Pelvis without Cont IMPRESSION: Bilateral nonobstructing renal stones. Electronically Signed: Samuel Daly MD at 9:10 EDT ,
== END | disposition home or self-care (01) ==
LOC: CT 07:14
PROVIDERS: PCP Family Medicine; Referring Provider Urology; Visit Provider Urology
DX: R31.21 Asymptomatic microscopic hematuria (principal)
CPT/HCPCS: 74176

== ENCOUNTER → 2022-06-08 | Outpatient (CLI) | payer MEDICARE, BC, SELFPAY ==
[2022-06-08 10:51] LABS: PSA,Total- Diagnostic 3.57 ng/mL (0.0-4.0)
== END | disposition home or self-care (01) ==
LOC: MTLAB 09:12
PROVIDERS: PCP Family Medicine; Referring Provider Urology; Visit Provider Urology
DX: R97.20 Elevated prostate specific antigen [PSA] (principal)
CPT/HCPCS: 36415; 84153

== ENCOUNTER → 2022-11-14 | Outpatient (CLI) | payer MEDICARE, BC, SELFPAY ==
--- NOTE | 2022-11-14 08:48 | BD_ITS ---
STUDY: DUAL ENERGY X-RAY ABSORPTIOMETRY / DXA REASON FOR EXAM: Male, 67 years old. M85.89 TECHNIQUE: Bone Mineral Density (BMD) measurements of lumbar spine and bilateral hips were obtained. COMPARISON: Comparison is made with prior examination dated October 15, 2014. FINDINGS: Lumbar Spine (L1-L4): g/cm2 (0.873) / T-score (-2.0) / Z-score (-1.2) Findings are suggestive of osteopenia with a moderate fracture risk. Left Femur Total: g/cm2 (0.831) / T-score (-1.3) / Z-score (-0.7) Left Femoral Neck: g/cm2 (0.688) / T-score (-1.8) / Z-score (-0.7) Right Femur Total: g/cm2 (0.873) / T-score (-1.1) / Z-score (-0.5) Right Femoral Neck: g/cm2 (0.772) / T-score (-1.2) / Z-score (0.0) The T-Scores on the most recent prior examination were: Lumbar Spine (L1-L4): There has been worsening of bone density since the previous examination. Left Femur Total: which represents a worsening of 3.4%. Right Femur Total: which represents an improvement of 0.7%. BD/Dexa Bone Density Study IMPRESSION: The patient is considered osteopenic as outlined below according to World [place] Organization (WHO) criteria with a moderate fracture risk. There has been worsening of bone density since the previous examination. Reference Information: The T-score is the number of standard deviations above or below the standard which is normal for young adults at their peak bone mineral density. The World Health Organization (WHO) interprets the T-scores as follows: Above -1 Normal bone density Between -1 and -2.5 Osteopenia Equal to / or below -2.5 Osteoporosis As a practical clinical guideline, osteopenia may be graded as follows: Mild -1 through -1.5 Moderate -1.6 through -2.0 Severe -2.1 through -2.4 The Z-score is the number of standard deviations above or below age-matched controls. A Z-score of less than -1.5 would be considered abnormal. References: 1. NIH Osteoporosis and Related Bone Diseases www osteo.org 2. International Society for Clinical Densitometry www iscd.org 3. National Osteoporosis Foundation www nof.org Electronically Signed: Jp Keller MD at 15:38 EDT ,
== END | disposition home or self-care (01) ==
LOC: OPBD 08:40
PROVIDERS: PCP Family Medicine; Referring Provider Family Medicine; Visit Provider Family Medicine
DX: M85.89 Other specified disorders of bone density and structure, multiple sites (principal)
CPT/HCPCS: 77080

== ENCOUNTER → 2023-01-18 | Outpatient (CLI) | payer MEDICARE, BC, SELFPAY ==
[2023-01-18 11:01] LABS: Vitamin D,25 Hydroxy 19.3 ng/mL
[2023-01-18 11:36] LABS: ALB/GLOB Ratio 0.9 RATIO (0.9-2.4); AST(SGOT) 21 U/L (15-37); Alanine Aminotransfer ALT/SGPT 25 U/L (16-61); Albumin, Serum 3.6 g/dL (3.2-5.0); Alkaline Phosphatase 76 U/L (45-117); Anion Gap 7 (5-15); BUN 15 mg/dL (7-18); BUN/Creat Ratio 16.6 RATIO (10-20); Calcium,Total 8.9 mg/dL (8.5-10.1); Chloride 108 mmol/L (98-107); Cholesterol 166 mg/dL (200); EST Glomerular Filtration Rate 89 mL/min (>60); Est Glom Filt Rate - Afr Amer 108 mL/min (>60); Globulin 4.2 g/dL (2.2-4.2); Glucose 95 mg/dL (74-106); High Density Lipoprotein 70 mg/dL; Potassium 4.2 mmol/L (3.5-5.1); Protein, Total 7.8 g/dL (6.4-8.2); Sodium Level 139 mmol/L (136-145); Thyroid Stim Hormone (TSH) 1.27 uIU/mL (0.358-3.74); Triglycerides 51 mg/dL; Very Low Density Lipoprotein 10 mg/dL (5-40)
== END | disposition home or self-care (01) ==
LOC: MFPLAB 09:12
PROVIDERS: PCP Family Medicine; Visit Provider Family Medicine
DX: E78.00 Pure hypercholesterolemia, unspecified (principal); M85.80 Other specified disorders of bone density and structure, unspecified site; E89.0 Postprocedural hypothyroidism
CPT/HCPCS: 36415; 80053; 80061; 82306; 84443

== ENCOUNTER → 2023-06-20 | Outpatient (CLI) | payer MEDICARE, BC, SELFPAY ==
[2023-06-20 13:02] LABS: PSA,Total - Annual Screen 5.03 ng/mL (0.00-4.00)
[2023-06-22 16:32] LABS: PSA,Total- Diagnostic 5.03 ng/mL (0.0-4.0)
== END | disposition home or self-care (01) ==
LOC: MFPLAB 09:43
PROVIDERS: PCP Family Medicine; Visit Provider Urology
DX: R97.20 Elevated prostate specific antigen [PSA] (principal); Z12.5 Encounter for screening for malignant neoplasm of prostate
CPT/HCPCS: 36415; 84153; G0103

== ENCOUNTER → 2023-07-02 | Outpatient (CLI) | payer MEDICARE, BC, SELFPAY ==
[2023-07-02 15:53] LABS: Vitamin D,25 Hydroxy 24.6 ng/mL
== END | disposition home or self-care (01) ==
LOC: MFPLAB 12:15
PROVIDERS: PCP Family Medicine; Visit Provider Family Medicine
DX: E55.9 Vitamin D deficiency, unspecified (principal)
CPT/HCPCS: 36415; 82306

== ENCOUNTER → 2023-12-17 | Outpatient (CLI) | payer MEDICARE, BC, SELFPAY ==
[2023-12-17 13:05] LABS: PSA,Total- Diagnostic 4.27 ng/mL (0.0-4.0)
[2023-12-18 13:08] LABS: PSA, Free 1.34 ng/mL
== END | disposition home or self-care (01) ==
LOC: MFPLAB 10:13
PROVIDERS: PCP Family Medicine; Visit Provider Urology
DX: N40.0 Benign prostatic hyperplasia without lower urinary tract symptoms (principal)
CPT/HCPCS: 36415; 84153; 84154

== ENCOUNTER → 2024-01-11 | Outpatient (CLI) | payer MEDICARE, BC, SELFPAY ==
[2024-01-11 10:20] LABS: Absolute Lymphocyte Count 1.07 X10^3/uL (0.83-4.51); Absolute Neutrophil Count 2.1 X10^3/uL (2.0-7.7); Basophil# 0.04 X10^3/uL; Basophil% 1.1 % (0-1); Eosinophil# 0.06 X10^3/uL; Eosinophils% 1.6 % (0-5); Hematocrit 44.9 % (40-54); Hemoglobin 14.4 g/dL (13.0-16.5); Lymphocyte # 1.07 X10^3/ul (0.83-4.51); Lymphocyte % 28.9 % (19-41); Mean Corp Hgb Conc 32.1 g/dL (32-36); Mean Corpuscular Hgb 31.9 pg (27.0-32.0); Mean Corpuscular Volume 99.3 fL (80-94); Mean Platelet Vol. 8.8 fl (6.2-12.0); Monocyte% 10.8 % (0-10); NRBC Flagged by Analyzer 0 % (0-5); Neutrophil # 2.13 X10^3/uL (2.7-7.7); Neutrophil % 57.6 % (47-70); Platelet Count 214 K/mm3 (150-450); RBC Distribution Width CV 12.7 % (11.6-14.6); RBC Distribution Width SD 46.7 fl (35.1-43.9); Red Blood Count 4.52 M/mm3 (4.6-6.2); White Blood Count 3.7 K/mm3 (4.4-11.0)
[2024-01-11 11:27] LABS: Anion Gap 6 (5-15); BUN 12 mg/dL (7-18); Calcium,Total 8.9 mg/dL (8.5-10.1); Chloride 107 mmol/L (98-107); Cholesterol 160 mg/dL (200); Creatinine, Serum 0.93 mg/dL (0.70-1.30); EST Glomerular Filtration Rate 86 mL/min (>60); Est Glom Filt Rate - Afr Amer 104 mL/min (>60); Free T3 2.7 pg/mL (2.18-3.98); Glucose 99 mg/dL (74-106); High Density Lipoprotein 66 mg/dL; Potassium 3.9 mmol/L (3.5-5.1); Sodium Level 140 mmol/L (136-145); T4 Free Direct 1.47 ng/dL (0.76-1.46); Thyroid Stim Hormone (TSH) 0.47 uIU/mL (0.358-3.74); Triglycerides 44 mg/dL; Very Low Density Lipoprotein 9 mg/dL (5-40)
[2024-01-11 11:36] LABS: Vitamin D,25 Hydroxy 38.4 ng/mL
== END | disposition home or self-care (01) ==
LOC: MFPLAB 08:03
PROVIDERS: PCP Family Medicine; Visit Provider Family Medicine
DX: Z00.00 Encounter for general adult medical examination without abnormal findings (principal); E55.9 Vitamin D deficiency, unspecified; E89.0 Postprocedural hypothyroidism; R53.83 Other fatigue
CPT/HCPCS: 36415; 80048; 80061; 82306; 84403; 84439; 84443; 84481; 85025

== ENCOUNTER → 2024-04-10 | Outpatient (CLI) | payer MEDICARE, BC, SELFPAY ==
[2024-04-10 12:12] LABS: Absolute Lymphocyte Count 0.84 X10^3/uL (0.83-4.51); Absolute Neutrophil Count 2.2 X10^3/uL (2.0-7.7); Basophil# 0.04 X10^3/uL; Basophil% 1.2 % (0-1); Eosinophil# 0.05 X10^3/uL; Eosinophils% 1.5 % (0-5); Hematocrit 46.1 % (40-54); Hemoglobin 14.9 g/dL (13.0-16.5); Lymphocyte # 0.84 X10^3/ul (0.83-4.51); Lymphocyte % 24.5 % (19-41); Mean Corp Hgb Conc 32.3 g/dL (32-36); Mean Corpuscular Hgb 31.6 pg (27.0-32.0); Mean Corpuscular Volume 97.9 fL (80-94); Mean Platelet Vol. 8.5 fl (6.2-12.0); Monocyte# 0.34 X10^3/uL; Monocyte% 9.9 % (0-10); NRBC Flagged by Analyzer 0 % (0-5); Neutrophil # 2.16 X10^3/uL (2.7-7.7); Neutrophil % 62.9 % (47-70); Platelet Count 219 K/mm3 (150-450); RBC Distribution Width CV 12.7 % (11.6-14.6); RBC Distribution Width SD 45.7 fl (35.1-43.9); Red Blood Count 4.71 M/mm3 (4.6-6.2); White Blood Count 3.4 K/mm3 (4.4-11.0)
[2024-04-10 12:37] LABS: Free T3 2.6 pg/mL (2.18-3.98); T4 Free Direct 1.35 ng/dL (0.76-1.46); Thyroid Stim Hormone (TSH) 0.562 uIU/mL (0.358-3.740)
== END | disposition home or self-care (01) ==
LOC: MFPLAB 09:56
PROVIDERS: PCP Family Medicine; Visit Provider Family Medicine
DX: R53.83 Other fatigue (principal); E03.9 Hypothyroidism, unspecified
CPT/HCPCS: 36415; 84439; 84443; 84481; 85025

== ENCOUNTER → 2024-10-08 | Outpatient (CLI) | payer MEDICARE, BC, SELFPAY ==
[2024-10-08 13:09] LABS: ALB/GLOB Ratio 1.3 RATIO (0.9-2.4); AST(SGOT) 25 U/L (<=37); Alanine Aminotransfer ALT/SGPT 18 U/L (<=46); Albumin, Serum 4.3 g/dL (3.4-4.8); Alkaline Phosphatase 81 U/L (40-129); Anion Gap 12 (5-15); BUN 11 mg/dL (4-19); BUN/Creat Ratio 11.5 RATIO (10-20); Calcium,Total 9.6 mg/dL (7.6-11.0); Carbon Dioxide 24.2 mmol/L (21.0-32.0); Chloride 105 mmol/L (98-108); Cholesterol 176 mg/dL (<=200); Creatinine, Serum 0.98 mg/dL (0.70-1.20); EST Glomerular Filtration Rate 83 (>60); Globulin 3.3 g/dL (2.2-4.2); Glucose 96 mg/dL (70-99); High Density Lipoprotein 65 mg/dL; Low Density Lipoprotein Calc. 100 mg/dL; Potassium 4.5 mmol/L (3.3-5.1); Protein, Total 7.5 g/dL (5.9-8.4); Sodium Level 141 mmol/L (133-145); Thyroid Stim Hormone (TSH) 0.899 uIU/mL (0.300-4.200); Total Bilirubin 0.81 mg/dL (0.00-1.30); Triglycerides 58 mg/dL; Very Low Density Lipoprotein 12 mg/dL (5-40); cholesterol:hdl ratio screen 2.72
== END | disposition home or self-care (01) ==
LOC: MFPLAB 09:44
PROVIDERS: PCP Family Medicine; Referring Provider Family Medicine; Visit Provider Family Medicine
DX: Z00.00 Encounter for general adult medical examination without abnormal findings (principal); E03.9 Hypothyroidism, unspecified
CPT/HCPCS: 36415; 80053; 80061; 84439; 84443; 84481

== ENCOUNTER → 2024-12-11 | Outpatient (CLI) | payer MEDICARE, BC, SELFPAY ==
[2024-12-11 14:20] LABS: Free T3 2.7 pg/mL (2.18-3.98)
== END | disposition home or self-care (01) ==
LOC: MFPLAB 10:20
PROVIDERS: PCP Family Medicine; Referring Provider Family Medicine; Visit Provider Family Medicine
DX: E03.9 Hypothyroidism, unspecified (principal)
CPT/HCPCS: 36415; 84439; 84481

== ENCOUNTER → 2025-01-01 | Outpatient (CLI) | payer MEDICARE, BC, SELFPAY ==
[2025-01-01 11:02] LABS: PSA,Total- Diagnostic 4.51 ng/mL (0.00-4.00)
== END | disposition home or self-care (01) ==
LOC: MFPLAB 08:52
PROVIDERS: PCP Family Medicine; Visit Provider Nurse Practitioner
DX: R97.20 Elevated prostate specific antigen [PSA] (principal)
CPT/HCPCS: 36415; 84153

== ENCOUNTER → 2025-04-29 | Outpatient (CLI) | payer MEDICARE, BC, SELFPAY ==
[2025-04-29 11:23] LABS: Free T3 3.1 pg/mL (2.18-3.98)
== END | disposition home or self-care (01) ==
LOC: MFPLAB 09:12
PROVIDERS: PCP Family Medicine; Visit Provider Family Medicine
DX: E03.9 Hypothyroidism, unspecified (principal)
CPT/HCPCS: 36415; 84439; 84443; 84481